=== PATIENT | female | born 1955 | race Caucasian/White ===

== ENCOUNTER 2021-02-14 12:39 | Inpatient (IN) ==
[2021-02-14] MEDS ORDERED: ACETAMINOPHEN 1,000 MG/100 ML BAG IV ONE (12:47)
[2021-02-14] MEDS ORDERED: 0.9 % SODIUM CHLORIDE 1,000 ML IV ONE (12:48)
[2021-02-14] MEDS ORDERED: DEXAMETHASONE 10 MG/ML VIAL IV ONE (13:17)
--- NOTE | 2021-02-14 13:22 | Emergency Department Note ---
SOB HPI General Chief Complaint: Shortness of Breath/Dyspnea Stated Complaint: COVID Time Seen by Provider: 02/14/21 12:43 Source: patient and EMS Mode of arrival: EMS Limitations: no limitations History of Present Illness HPI Narrative: This a 65-year-old female patient who [facility] Fortunately, she developed worsening shortness of breath this past Wednesday and was seen at [facility] ER where she was given IV steroid and a prescription for azithromycin and discharged home. She continued to have worsening shortness of breath and was brought in by EMS with saturations in the 60s on room air today. She is now on 10 L nonrebreather at 93%. She has a history of diabetes, hypertension. History of asthma, no COPD. Unvaccinated for Covid. She is complaining of some diarrhea, no nausea or vomiting. Denies chest pain. No history of coronary artery disease. Remote stress test was negative for ischemia. She is taking ibuprofen for fever. She is 100.4 F on presentation today. Related Data Home Medications Medication Instructions Recorded Confirmed oxygen-air delivery systems #1 02/01/19 11/04/20 Previous Rx's Medication Instructions Recorded levothyroxine 88 mcg capsule 88 mcg PO QDAY #90 cap 02/06/20 montelukast 10 mg tablet 10 mg PO QHS #90 tab 02/06/20 olmesartan 5 mg tablet 5 mg PO QDAY #90 tab 02/06/20 rosuvastatin 40 mg tablet 40 mg PO QDAY #90 tab 02/06/20 fluticasone propionate 230 2 puff INHALATION Q12H #8 g 03/20/20 mcg-salmeterol 21 mcg/actuation HFA inhaler glipizide 5 mg tablet 5 mg PO QDAY #90 tab 07/30/20 trazodone 50 mg tablet See Rx Instructions PO QDAY PRN 10/04/20 #90 tab hydrocortisone 2.5 % topical 1 applic TOPICAL BID PRN #20 g 11/01/20 ointment Allergies Allergy/AdvReac Type Severity Reaction Status Date / Time crab Allergy Mild Gastrointestinal Verified 11/04/20 13:28 Upset cat dander Allergy Unknown Rash, itchy Verified 11/04/20 13:28 codeine Allergy Unknown Rash, itchy Verified 05/17/21 13:28 dust Allergy Unknown Runny Uncoded 11/04/20 13:28 nose, ichy eyes grass Allergy Unknown Rash, itchy Uncoded 11/04/20 13:28 Review of Systems ROS ROS Narrative: Narrative: All systems ED: reviewed and negative except as stated. [facility] Narrative Patient History Narrative: Narrative: Medical/Surgical/Family History All Active Problems (Updated 02/14/21 @ 14:22 by Goldie Michael PA-C) Pneumonia due to COVID-19 virus (Acute) Respiratory failure, acute (Acute) Exposure to COVID-19 virus (Acute) Viral syndrome (Acute) Swelling of eyelid (Acute) Radiculopathy of lumbar region (Acute) Bursitis of right hip (Chronic) Back pain (Chronic) Low back pain (Chronic) Right hip pain (Chronic) Obstructive sleep apnea (Chronic) Recurrent UTI (Chronic) Medicare annual wellness visit, initial (Chronic) Snoring (Chronic) Allergic reaction (Chronic) Encounter for Health Maintenance Examination in Adult (Chronic) Abnormal liver enzymes (Chronic) Chronic diarrhea (Chronic) Middle insomnia (Chronic) Spasm of back muscles (Chronic) Acute dermatitis (Chronic) Exacerbation of asthma (Chronic) Asthma (Chronic) Allergic rhinitis (Chronic) Restless legs (Chronic) Hypothyroidism (Chronic) Candidiasis of skin (Chronic) History of tobacco use (Chronic) Diverticulitis (Chronic ~2013) Joint pain (Chronic) Insomnia (Chronic) Hyperlipidemia (Chronic) Hypertension, essential (Chronic) Borderline diabetes (Chronic) Muscle pain (Chronic) Lung disorder (Chronic) Arthritis (Chronic) Acid reflux (Chronic) Medical History Abnormal liver enzymes Acid reflux controlled with diet, low carb diet Acute dermatitis Allergic reaction stable on montelukast 10mg daily Allergic rhinitis Arthritis Asthma Back pain Borderline diabetes A1c to be checked today continue glipizide 5mg po daily Bursitis of right hip Candidiasis of skin Chronic diarrhea Diverticulitis (~2013) Ear discharge Encounter for Health Maintenance Examination in Adult Exacerbation of asthma stable on advair HFA 2 puff bid Exposure to COVID-19 virus History of tobacco use Hyperlipidemia stable on rosvastatin 40mg daily Hypertension, essential stable on olmesartan 5mg daily Hypothyroidism Impaired glucose tolerance Insomnia Joint pain Lung disorder Medicare annual wellness visit, initial Middle insomnia Muscle pain Restless legs Spasm of back muscles Swelling of eyelid Thyroid disease (~2000) Viral syndrome Surgical History H/O meniscectomy of right knee (~2011) H/O repair of left rotator cuff (~2013) History of bilateral carpal tunnel release (~2013) History of right knee surgery (~2011) ACL allograft History of right oophorectomy (~1986) dermoid cyst, still has uterus Hx of appendectomy (~1986) S/P tendon repair (~2013) Biceps tendon Family History Mother Arthritis Lymphoma Diabetes Migraines Thyroid disease Brother Lung cancer Heart attack Father Dementia Diabetes Hypertension, essential Heart attack Thyroid disease Heart disease Alzheimers disease Social History Smoking Status: Former smoker Alcohol Intake Frequency: a few times a month Substance Use: does not use Exam Narrative Narrative: General: AOx3, NAD, nontoxic appearing. Pleasant and conversant. HEENT: PERRLA, EOMI, normocephalic. Moist mucous membranes. Normal facies and normal dentition. Chest: Symmetric, no pain to palpation Respiratory: Crackles throughout all lung antunez. No respiratory distress. Unlabored breathing on 10 L O2 via nonrebreather. Sats 93% Heart: Regular rate and rhythm, no murmurs/clicks/rubs. Abdomen: Non-tender, Non distended, normal bowel tones. No organomegaly. Extremities: Warm and well perfused. No edema. DP 2+ bilaterally. No venous stasis. Neuro: No focal deficits. Cranial nerves II-XII normal. Skin: Warm dry, no rashes or lesions, no cyanosis. Psych: Normal mood and affect Heme/Lymph: No abnormal bruising General Limitations: no limitations Course Course Course Narrative: 65-year-old female with recent diagnosis of Covid presents with acute hypoxic respiratory failure Reevaluation(s) Reevaluation #1: Obtain basic labs, CMP CBC Obtain chest x-ray Give 6 mg IV Decadron x1 dose IV fluids Reevaluation #2: Chest x-ray with severe bilateral infiltrates consistent with Covid pneumonia. CMP with a creatinine 1.4. Baseline is 1. Sodium is 132. LFTs are moderately elevated. EKG shows normal sinus rhythm with nonspecific ST changes in the precordial leads with T wave inversions in V1 through V5. Patient has normal axis and normal intervals. No acute ST elevations. Patient has no cardiac history. I spoken with the hospitalist, and he asked that I order troponin. This has been done. Vital Signs Vital signs: Vital Signs Temperature 100.1 F H 02/14/21 12:40 Pulse Rate 86 02/14/21 12:40 Respiratory Rate 22 02/14/21 12:40 Blood Pressure 85/57 02/14/21 12:40 Pulse Oximetry (%) 90 02/14/21 12:40 Temperature 100.1 F H 02/14/21 12:40 Pulse Rate 92 H 02/14/21 13:46 Respiratory Rate 22 02/14/21 13:46 Blood Pressure 110/54 02/14/21 13:46 Pulse Oximetry (%) 92 02/14/21 13:46 MDM MDM Narrative Medical decision making narrative: Acute hypoxic respiratory failure Covid pneumonia Transaminitis Renal insufficiency Patient has high oxygen requirements and will need inpatient admission. I have spoken with the hospitalist who is except the patient for admission. Lab Data Result diagrams: 02/14/21 12:55 02/14/21 12:55 Labs: Lab Results 02/14/21 02/14/21 Range/Units 12:55 12:55 WBC 10.9 (4.5-11.0) K/mcL RBC 3.77 (3.59-5.38) M/mcL Hgb 11.9 (11.2-15.7) g/dL Hct 35.4 (34.1-44.9) % MCV 93.9 (80.0-100.0) fL MCH 31.6 (26.0-34.0) pg MCHC 33.6 (31.0-36.0) g/dL RDW 14.6 H (11.5-14.5) % Plt Count 329 (140-440) K/mcL MPV 10.2 (7.4-10.4) fL Sodium 132 L (133-145) mmol/L Potassium 3.8 (3.3-5.1) mmol/L Chloride 95 L (96-108) mmol/L Carbon Dioxide 24 (22-30) mmol/L Anion Gap 13.0 (8.0-16.0) BUN 23 (8-23) mg/dL Creatinine 1.4 H (0.6-1.1) mg/dL GFR Calculation 39 Glucose 98 (70-105) mg/dL Calcium 8.4 L (8.6-10.4) mg/dL Total Bilirubin 0.5 (0.1-1.0) mg/dL AST 62 H (<32) U/L ALT 49 H (<40) U/L Alkaline Phosphatase 58 (39-117) U/L Total Protein 6.5 (5.9-8.4) gm/dL Albumin 3.3 (3.2-5.2) gm/dL Globulin 3.2 (2.2-3.7) gm/dL Albumin/Globulin Ratio 1.0 (1.0-2.3) EKG Data EKG #1: EKG attestation: Yes I reviewed and interpreted this EKG. and Yes There are no EKG findings of acute coronary syndrome EKG results narrative: EKG was read by me at 12:44 PM. It does show normal sinus rhythm with rate 83 bpm, normal axis and normal intervals. She does have nonspecific T wave findings with T wave inversions in V1 through V5. Discharge Plan Patient/Caregiver Discharge Instructions Pt seen by WAREHOUSE PRICING AND INVENTORY CLERK/PA only: Yes Clinical Impression: Pneumonia due to COVID-19 virus, Respiratory failure, acute Patient Disposition: Xfer As Inpt ([facility]) Follow up with: Rosa M Terry PA-C [Primary Care Provider] - Prescriptions: No Action Advair HFA 230-21 mcg/actuation HFA aerosol inhaler 2 puff INHALATION Q12H Qty: 8 RF: 5 glipizide 5 mg tablet 5 mg PO QDAY Qty: 90 RF: 1 trazodone 50 mg tablet See Rx Instructions PO QDAY PRN (Reason: insomnia) Qty: 90 RF: 2 (DME) oxygen-air delivery systems device device See Dose Instructions .ROUTE .MEDSUPPLY Qty: 1 RF: 0 levothyroxine 88 mcg capsule 88 mcg PO QDAY Qty: 90 RF: 4 montelukast 10 mg tablet 10 mg PO QHS Qty: 90 RF: 4 olmesartan 5 mg tablet 5 mg PO QDAY Qty: 90 RF: 4 rosuvastatin 40 mg tablet 40 mg PO QDAY Qty: 90 RF: 4 hydrocortisone 2.5 % ointment 1 applic topical BID PRN (Reason: itching) Qty: 20 RF: 0
[2021-02-14 13:42] LABS: Hematocrit 35.4 % (34.1-44.9); Hemoglobin 11.9 g/dL (11.2-15.7); Mean Cell Volume 93.9 fL (80.0-100.0); Mean Corpuscular HGB Conc 33.6 g/dL (31.0-36.0); Mean Platelet Volume 10.2 fL (7.4-10.4); Platelet Count 329 K/mcL (140-440); RBC 3.77 M/mcL (3.59-5.38); Red Cell Distribution Width 14.6 % (11.5-14.5); WBC 10.9 K/mcL (4.5-11.0)
[2021-02-14 14:02] LABS: ALT/SGPT 49 U/L (<40); AST/SGOT 62 U/L (<32); Albumin 3.3 gm/dL (3.2-5.2); Alkaline Phosphatase 58 U/L (39-117); Bilirubin,Total 0.5 mg/dL (0.1-1.0); Blood Urea Nitrogen 23 mg/dL (8-23); Calcium 8.4 mg/dL (8.6-10.4); Carbon Dioxide 24 mmol/L (22-30); Chloride 95 mmol/L (96-108); Globulin 3.2 gm/dL (2.2-3.7); Glomerular Filtration Rate 39; Glucose 98 mg/dL (70-105)
[2021-02-14] MEDS ORDERED: ONDANSETRON 4 MG/2 ML VIAL IV ONE (14:04)
[2021-02-14 14:37] LABS: Anisocytosis FEW (None Seen); Band Neutrophils % 8 % (0-10); Lymphocytes % 7 % (15-49); Monocytes % (Manual) 1 % (1-12); Platelet Estimate NORMAL (Normal); RBC Morphology ABNORMAL (Normal); Segmented Neutrophils % 84 % (38-78)
[2021-02-14] MEDS ORDERED: traZODone HCL 50 MG TABLET PO PRN (15:10)
[2021-02-14] MEDS ORDERED: HYDROCORTISONE 2.5% TOPICAL PRN (15:10)
[2021-02-14] MEDS ORDERED: REMDESIVIR 200 MG in 0.9 % SODIUM CHLORIDE 250 ML IV ONE ×2 (15:11→16:30)
--- NOTE | 2021-02-14 15:27 | Internal Med History&Physical ---
HPI History of Present Illness Patient information: Note initiated : 02/14/21 at 3:18 pm Service Date, if different from initiated Date: [] Patient: Estrella Sue a 65 y/o F admitted on for COVID. Chief Complaint: [CoVID pneumonia] History of present illness: Ms. Sue is a 65 year old F history of type 2 diabetes mellitus, essential HTN, mixed dyslipidemia, hypothyroidism, asthma, presenting with 10-day history of shortness of breath with productive cough. Patient is not being vaccinated against Covid pneumonia. She was being diagnosed with Covid pneumonia 2 weeks ago because her had Covid pneumonia. Her symptoms of shortness of breath and productive cough started about 10 days ago. She is not sure about the color of her sputum. She denies respiratory wheezings. She denies subjective fever or chills. She is complaining of general body weakness. She denies generalized muscle aches. She presented to [facility] emergency room 2 days ago and she was being discharged home with Z-Humberto and was given a shot of steroid. Today when she presented to urgent care center she was found to have oxygen desaturations to 60s on room air. Labs significant for lack of leukocytosis with WBC 10.9. Serum creatinine level 1.4 baseline 1.0. Chest x-ray performed results pending. Constitutional Constitutional: Present weakness; Absent chills, excessive sweating, fatigue and fever(s) EENT Eyes: Absent blurry vision, change in vision, loss of vision and other visual disturbances Ears: Absent decreased hearing and tinnitus Nose, mouth and throat: Absent abnormal hearing, dry mouth, headache(s), nasal congestion and sore throat Cardiovascular Cardiovascular: Absent chest pain, chest pain at rest, edema, irregular heart rhythm and palpatations Respiratory Respiratory: Present cough, dyspnea and excessive phlegm production; Absent wheezing Gastrointestinal Gastrointestinal: Absent abdominal pain, constipation, diarrhea, nausea and vomiting Musculoskeletal Musculoskeletal: Absent back pain, deformity, limited range of motion, muscle cramps, muscle weakness and numbness Integumentary Integumentary: Absent lesions, rash and wounds Neurological Neurological: Absent focal weakness, headache(s) and numbness Psychiatric Psychiatric: Absent anxiety, depression and hallucinations PFSH PFSH All Active Problems (Updated 02/14/21 @ 15:24 by Shlomo Henley MD) Stage 1 acute kidney injury (Acute) T2DM (type 2 diabetes mellitus) (Acute) Pneumonia due to COVID-19 virus (Acute) Respiratory failure, acute (Acute) Exposure to COVID-19 virus (Acute) Viral syndrome (Acute) Swelling of eyelid (Acute) Radiculopathy of lumbar region (Acute) Bursitis of right hip (Chronic) Back pain (Chronic) Low back pain (Chronic) Right hip pain (Chronic) Obstructive sleep apnea (Chronic) Recurrent UTI (Chronic) Medicare annual wellness visit, initial (Chronic) Snoring (Chronic) Allergic reaction (Chronic) Encounter for Health Maintenance Examination in Adult (Chronic) Abnormal liver enzymes (Chronic) Chronic diarrhea (Chronic) Middle insomnia (Chronic) Spasm of back muscles (Chronic) Acute dermatitis (Chronic) Exacerbation of asthma (Chronic) Asthma (Chronic) Allergic rhinitis (Chronic) Restless legs (Chronic) Hypothyroidism (Chronic) Candidiasis of skin (Chronic) History of tobacco use (Chronic) Diverticulitis (Chronic ~2013) Joint pain (Chronic) Insomnia (Chronic) Hyperlipidemia (Chronic) Hypertension, essential (Chronic) Borderline diabetes (Chronic) Muscle pain (Chronic) Lung disorder (Chronic) Arthritis (Chronic) Acid reflux (Chronic) Medical History Abnormal liver enzymes Acid reflux controlled with diet, low carb diet Acute dermatitis Allergic reaction stable on montelukast 10mg daily Allergic rhinitis Arthritis Asthma Back pain Borderline diabetes A1c to be checked today continue glipizide 5mg po daily Bursitis of right hip Candidiasis of skin Chronic diarrhea Diverticulitis (~2013) Ear discharge Encounter for Health Maintenance Examination in Adult Exacerbation of asthma stable on advair HFA 2 puff bid Exposure to COVID-19 virus History of tobacco use Hyperlipidemia stable on rosvastatin 40mg daily Hypertension, essential stable on olmesartan 5mg daily Hypothyroidism Impaired glucose tolerance Insomnia Joint pain Lung disorder Medicare annual wellness visit, initial Middle insomnia Muscle pain Restless legs Spasm of back muscles Swelling of eyelid Thyroid disease (~2000) Viral syndrome Surgical History H/O meniscectomy of right knee (~2011) H/O repair of left rotator cuff (~2013) History of bilateral carpal tunnel release (~2013) History of right knee surgery (~2011) ACL allograft History of right oophorectomy (~1986) dermoid cyst, still has uterus Hx of appendectomy (~1986) S/P tendon repair (~2013) Biceps tendon Family History Mother Arthritis Lymphoma Diabetes Migraines Thyroid disease Brother Lung cancer Heart attack Father Dementia Diabetes Hypertension, essential Heart attack Thyroid disease Heart disease Alzheimers disease Social History marital status: education level: college occupational status: retired sexually active: Yes other: Children-3 alcohol intake frequency: a few times a month substance use type: does not use seatbelt use: always working smoke detector in home: Yes firearms in home: No MEDS/ALLERGIES Home Medications and Allergies Home Medications Medication Instructions Recorded Confirmed Type oxygen-air delivery systems #1 02/01/19 11/04/20 History levothyroxine 88 mcg capsule 88 mcg PO QDAY #90 cap 02/06/20 02/14/21 Rx montelukast 10 mg tablet 10 mg PO QHS #90 tab 02/06/20 02/14/21 Rx olmesartan 5 mg tablet 5 mg PO QDAY #90 tab 02/06/20 02/14/21 Rx rosuvastatin 40 mg tablet 40 mg PO QDAY #90 tab 02/06/20 02/14/21 Rx fluticasone propionate 230 2 puff INHALATION Q12H #8 g 03/20/20 02/14/21 Rx mcg-salmeterol 21 mcg/actuation HFA inhaler glipizide 5 mg tablet 5 mg PO QDAY #90 tab 07/30/20 02/14/21 Rx trazodone 50 mg tablet See Rx Instructions PO QDAY PRN 10/04/20 02/14/21 Rx #90 tab hydrocortisone 2.5 % topical 1 applic TOPICAL BID PRN #20 g 11/01/20 02/14/21 Rx ointment Allergies Allergy/AdvReac Type Severity Reaction Status Date / Time codeine Allergy Mild Rash, itchy Verified 02/14/21 15:16 crab AdvReac Mild Gastrointestinal Verified 02/14/21 15:16 Upset EXAM Constitutional Vitals: Temp Pulse Resp BP Pulse Ox 37.8 C H 85 21 98/69 94 02/14/21 12:40 02/14/21 15:01 02/14/21 15:01 02/14/21 15:01 02/14/21 15:01 General appearance: cooperative and mild distress; no no acute distress Head Head exam: Present atraumatic and normocephalic Eye Eye exam: Present EOMI and PERRL ENT ENT exam: Present mucous membranes moist, normal exam and normal external ear exam Additional comments: High flow oxygen in place Neck Neck exam: Present normal inspection; Absent lymphadenopathy, tenderness and thyromegaly Respiratory Respiratory exam: Present rhonchi; Absent accessory muscle use, respiratory distress and wheezes Cardiovascular Cardiovascular exam: Present normal rate and rhythm; Absent JVD GI/Abdominal GI/Abdominal exam: Present normal bowel sounds and soft; Absent organomegaly and tenderness Extremities Exam Extremities exam: Present full ROM, normal capillary refill and normal inspection; Absent tenderness Neurological Exam Neurological exam: Present alert, CN II-XII intact and oriented X3; Absent motor sensory deficit Psychiatric Psychiatric exam: Present normal affect and normal mood; Absent anxious and depressed Skin Skin exam: Present dry and intact DATA Data Completed and Pending Labs: Labs from last 24 hours 02/14/21 02/14/21 02/14/21 12:55 12:55 12:55 WBC 10.9 RBC 3.77 Hgb 11.9 Hct 35.4 MCV 93.9 MCH 31.6 MCHC 33.6 RDW 14.6 H Plt Count 329 MPV 10.2 Seg Neutrophils % 84 H Band Neutrophils % 8 Lymphocytes % 7 L Monocytes % (Manual) 1 Platelet Estimate Normal RBC Morphology Abnormal A Anisocytosis Few A Sodium 132 L Potassium 3.8 Chloride 95 L Carbon Dioxide 24 Anion Gap 13.0 BUN 23 Creatinine 1.4 H GFR Calculation 39 Glucose 98 Calcium 8.4 L Total Bilirubin 0.5 AST 62 H ALT 49 H Alkaline Phosphatase 58 Troponin T < 0.01 Total Protein 6.5 Albumin 3.3 Globulin 3.2 Albumin/Globulin Ratio 1.0 A/P Assessment and plan (1) Pneumonia due to COVID-19 virus: Status: Acute (2) Respiratory failure, acute: Status: Acute (3) Asthma: Status: Chronic Qualifiers: Asthma severity: moderate Asthma persistence: persistent Asthma complication type: uncomplicated Qualified Code(s): J45.40 - Moderate persistent asthma, uncomplicated; J45.40 - Moderate persistent asthma, uncomplicated; J45.40 - Moderate persistent asthma, uncomplicated (4) Hypothyroidism: Status: Chronic Qualifiers: Hypothyroidism type: unspecified Qualified Code(s): E03.9 - Hypothyroidism, unspecified (5) Hyperlipidemia: Status: Chronic Comment: stable on rosvastatin 40mg daily Qualifiers: Hyperlipidemia type: mixed hyperlipidemia Qualified Code(s): E78.2 - Mixed hyperlipidemia (6) Hypertension, essential: Status: Chronic Comment: stable on olmesartan 5mg daily (7) T2DM (type 2 diabetes mellitus): Status: Acute (8) Stage 1 acute kidney injury: Status: Acute Narrative A/P Narrative: Assessment and Plans: 1. CoVID pneumonia: Inpatient PCU Isolation: airborne and contact Lactic acid Inflammatory markers Blood culture Daily ABG Daily cbc w/ auto diff Supplemental oxygen titrate to keep spo2>=92% Tylenol PRN fever Robitussin DM PRN cough DuoNeb NEB q4hr PRN wheezing Remdesivir Dexamethasone Lovenox Lasix 2. Asthma: DuoNeb NEB q4hr PRN wheezing Supplemental oxygen titrate to keep spo2>=92% 3. T2DM: HgA1c Hold oral hypoglycemics Low dose correctional scale insulin Accu Chek AC HS Hypoglycemia protocol Diabetic diet 4. Hypothyroidism: Continue oral thyroid replacement therapy 5. Essential HTN: Hold oral antihypertensives given borderline blood pressure 6. Mixed dyslipidemia: Continue statin therapy 7. Stage 1 acute kidney injury: Avoid nephrotoxic agents Saline lock with Lasix CMP in AM to trend kidney functions GI ppx: not currently indicated DVT ppx: Lovenox Code status: Full Prognosis: guarded Disposition: inpatient PCU Time Spent With Patient Time: Total time spent is greater than 50% in coordination of care (as documented) at patient's floor/unit and/or counseling patient: Total time spent with greater than 50% in coordination of care (as documented) at patient's floor/unit and/or counseling patient:: Greater than 35 minutes
--- NOTE | 2021-02-14 15:32 | XRay Report ---
CLINICAL INFORMATION: hypoxia COMPARISON: 11/29/2018 FINDINGS: Mild cardiomegaly is unchanged. Increased density as developed in the azygous and right hilar region is likely represents adenopathy. Pulmonary vessels are normal. Large, yet vague, alveolar/interstitial infiltrates have developed throughout both lungs with peripheral sparing. IMPRESSION: Diffuse bilateral infiltrates. Consider aspiration or infection. Interpreted and Authenticated by: Gavin Bernal 02/14/21
[2021-02-14] MEDS ORDERED: DEXTROSE 50% 50 ML VIAL IV PRN (16:01)
[2021-02-14] MEDS ORDERED: DEXTROSE 31 GM ORAL.SUSP PO PRN (16:01)
[2021-02-14] MEDS ORDERED: ONDANSETRON 4 MG/2 ML VIAL IV PRN (16:01)
[2021-02-14] MEDS ORDERED: IPRATROPIUM/ALBUTEROL 3 ML AMPUL.NEB NEB PRN (16:01)
[2021-02-14] MEDS ORDERED: SENNOSIDES 1 TABLET PO PRN (16:01)
[2021-02-14] MEDS ORDERED: LACTULOSE 20 GM/30 ML ORAL.SOL PO PRN (16:01)
[2021-02-14] MEDS ORDERED: HYDROCORTISONE CRM 2.5% TUBE 30GM TOPICAL PRN (16:08)
[2021-02-14] MEDS: FUROSEMIDE 20 MG TABLET PO SCH (16:26)
[2021-02-14] MEDS: INSULIN LISPRO 1 UNIT/0.01 ML UNIT SQ SCH ×2 (17:57→21:53)
[2021-02-14 18:32] LABS: Prothrombin Time 14.1 sec (11.9-14.5)
[2021-02-14 18:44] LABS: ALT/SGPT 47 U/L (<40); AST/SGOT 56 U/L (<32); Albumin 3.2 gm/dL (3.2-5.2); Alkaline Phosphatase 57 U/L (39-117); Bilirubin,Total 0.4 mg/dL (0.1-1.0); Blood Urea Nitrogen 24 mg/dL (8-23); Calcium 8.2 mg/dL (8.6-10.4); Carbon Dioxide 20 mmol/L (22-30); Chloride 97 mmol/L (96-108); Globulin 3.2 gm/dL (2.2-3.7); Glomerular Filtration Rate 36; Glucose 130 mg/dL (70-105); Lactate Dehydrogenase 478 U/L (135-225)
[2021-02-14 18:51] LABS: Estimated Average Glucose(eAG) 126 mg/dL
[2021-02-14] MEDS ORDERED: ATORVASTATIN 40 MG TABLET PO SCH (21:00)
[2021-02-14] MEDS ORDERED: MONTELUKAST 10 MG TABLET PO SCH ×2 (21:00)
[2021-02-14] MEDS: ENOXAPARIN 40 MG/0.4 ML SYRINGE SQ SCH (21:13)
[2021-02-14] MEDS: traZODone HCL 50 MG TABLET PO PRN (21:14)
[2021-02-14] MEDS: ACETAMINOPHEN 325 MG TABLET PO PRN (21:14)
[2021-02-14] MEDS: rOPINIRole 0.25 MG TABLET PO SCH (21:14)
[2021-02-14] MEDS: guaiFENesin/DEXTROMETHORPHAN ORAL SOL PO PRN (21:15)
[2021-02-14] MEDS: 0.9 % SODIUM CHLORIDE 10 ML SYRINGE IV SCH (21:15)
[2021-02-14] MEDS: DOCUSATE SODIUM 100 MG CAPSULE PO SCH (21:15)
[2021-02-14] MEDS: ATORVASTATIN 40 MG TABLET PO SCH (21:15)
[2021-02-14] MEDS: CETIRIZINE 10 MG TABLET PO SCH (21:15)
[2021-02-15] MEDS: 0.9 % SODIUM CHLORIDE 10 ML SYRINGE IV SCH ×3 (06:18→22:43)
[2021-02-15 07:14] LABS: Basophils # (Auto) 0.05 K/mcL (0.00-0.30); Basophils % (Auto) 0.4 % (0.0-2.0); Eosinophils # (Auto) 0.01 K/mcL (0.00-0.70); Eosinophils % (Auto) 0.1 % (0.0-7.0); Hematocrit 36.5 % (34.1-44.9); Hemoglobin 11.3 g/dL (11.2-15.7); Lymphocytes # (Auto) 0.72 K/mcL (1.50-4.80); Lymphocytes % (Auto) 5.8 % (15.5-49.0); Mean Cell Volume 98.9 fL (80.0-100.0); Mean Platelet Volume 10.4 fL (7.4-10.4); Monocytes # (Auto) 0.34 K/mcL (0.10-0.90); Monocytes % (Auto) 2.7 % (1.0-12.0); Platelet Count 327 K/mcL (140-440); RBC 3.69 M/mcL (3.59-5.38); Red Cell Distribution Width 14.9 % (11.5-14.5); WBC 12.4 K/mcL (4.5-11.0)
[2021-02-15] MEDS ORDERED: LEVOTHYROXINE 88 MCG TABLET PO SCH (07:30)
[2021-02-15] MEDS: LEVOTHYROXINE 88 MCG TABLET PO SCH (07:31)
[2021-02-15 07:35] LABS: ALT/SGPT 47 U/L (<40); AST/SGOT 56 U/L (<32); Albumin/Globulin Ratio 0.9 (1.0-2.3); Alkaline Phosphatase 65 U/L (39-117); Bilirubin,Total 0.3 mg/dL (0.1-1.0); Blood Urea Nitrogen 25 mg/dL (8-23); Calcium 8.1 mg/dL (8.6-10.4); Carbon Dioxide 22 mmol/L (22-30); Chloride 99 mmol/L (96-108); Globulin 3.2 gm/dL (2.2-3.7); Glomerular Filtration Rate 36; Glucose 139 mg/dL (70-105)
[2021-02-15] MEDS: INSULIN LISPRO 1 UNIT/0.01 ML UNIT SQ SCH ×4 (07:55→20:53)
[2021-02-15] MEDS: FUROSEMIDE 20 MG TABLET PO SCH ×2 (07:57→16:08)
[2021-02-15] MEDS: ENOXAPARIN 40 MG/0.4 ML SYRINGE SQ SCH ×2 (08:39→20:19)
[2021-02-15] MEDS: DEXAMETHASONE 10 MG/ML VIAL IV SCH (08:39)
[2021-02-15] MEDS: DOCUSATE SODIUM 100 MG CAPSULE PO SCH ×2 (08:40→20:20)
[2021-02-15] MEDS: CETIRIZINE 10 MG TABLET PO SCH ×2 (08:48→20:20)
[2021-02-15] MEDS ORDERED: OLMESARTAN 5 MG PO SCH (09:00)
--- NOTE | 2021-02-15 10:58 | Internal Med Progress Note ---
SUBJECTIVE Subjective Patient information: Note initiated : 02/15/21 at 10:55 am Service Date, if different from initiated Date: [] Patient: Estrella Sue 65 y/o F admitted on 02/14/21 for COVID. Chief Complaint: [CoVID pneumonia] Interval history: History of present illness: Ms. Sue is a 65 year old F history of type 2 diabetes mellitus, essential HTN, mixed dyslipidemia, hypothyroidism, asthma, presenting with 10-day history of shortness of breath with productive cough. Patient is not being vaccinated against Covid pneumonia. She was being diagnosed with Covid pneumonia 2 weeks ago because her had Covid pneumonia. Her symptoms of shortness of breath and productive cough started about 10 days ago. She is not sure about the color of her sputum. She denies respiratory wheezings. She denies subjective fever or chills. She is complaining of general body weakness. She denies generalized muscle aches. She presented to [facility] emergency room 2 days ago and she was being discharged home with Z-Humberto and was given a shot of steroid. Today when she presented to urgent care center she was found to have oxygen desaturations to 60s on room air. Labs significant for lack of leukocytosis with WBC 10.9. Serum creatinine level 1.4 baseline 1.0. Chest x-ray performed results pending. 02/15: Afebrile overnight. Been on high flow oxygen between 50-60L/min with FiO2 80% overnight. Improving degree of shortness of breath. c/o nonproductive cough without sputum production. Denies wheezing. Denies chest pain. Denies fever, chills, or sweating. Constitutional Vitals: Vital Signs Temp Pulse Resp BP Pulse Ox 37.2 C 71 23 H 112/68 94 02/15/21 08:00 02/15/21 08:00 02/15/21 08:00 02/15/21 08:00 02/15/21 08:00 Period Temp Pulse Resp BP Sys/Gupta Pulse Ox Last 24 Hr 36.2 C-37.8 C 66-92 13-24 85-130/49-95 88-98 Intake and Output 02/14/21 02/15/21 02/15/21 21:59 05:59 13:59 Intake Total 250 Output Total 375 676 Balance -125 -676 Weight 93.939 kg Intake & Output: Intake & Output 02/14/21 02/15/21 02/15/21 21:59 05:59 13:59 Intake Total 250 Output Total 375 676 Balance -125 -676 Weight 93.939 kg Intake: IV 250 Veklury 200 mg In Sodium 250 Chloride 0.9% 250 ml @ 500 mls/ hr IV ONCE ONE Rx#:[id number] Output: Void Amount 375 675 # of times incontinent of urine 1 Other: Meal Breakfast Percent of Meal Consumed 100% Feeding Ability Independent Urine Appearance Clear Urine Color Light Davida Straw Urine Odor Normal General appearance: cooperative and no acute distress Head Head exam: Present atraumatic and normocephalic Eye Eye exam: Present EOMI and PERRL ENT ENT exam: Present mucous membranes moist, normal exam and normal external ear exam Additional comments: High flow oxygen in place Neck Neck exam: Present normal inspection; Absent lymphadenopathy, tenderness and thyromegaly Respiratory Respiratory exam: Present rhonchi; Absent accessory muscle use, respiratory distress and wheezes Cardiovascular Cardiovascular exam: Present normal rate and rhythm; Absent JVD GI/Abdominal GI/Abdominal exam: Present normal bowel sounds and soft; Absent organomegaly and tenderness Extremities Exam Extremities exam: Present full ROM, normal capillary refill and normal inspection; Absent tenderness Neurological Exam Neurological exam: Present alert, CN II-XII intact and oriented X3; Absent motor sensory deficit Psychiatric Psychiatric exam: Present normal affect and normal mood; Absent anxious and depressed Skin Skin exam: Present dry and intact OBJ DATA Labs CBC & Chem 7: 02/15/21 05:38 02/15/21 05:38 Labs: Abnormal Lab Results 02/15/21 02/15/21 02/14/21 05:38 05:38 16:55 WBC 12.4 H RDW 14.9 H Neut % (Auto) 91.0 H Lymph % (Auto) 5.8 L Lymph # (Auto) 0.72 L Seg Neutrophils % Lymphocytes % Absolute Neutrophils 11.32 H RBC Morphology Anisocytosis Fibrinogen D-Dimer Sodium Chloride Carbon Dioxide BUN 25 H Creatinine 1.5 H Glucose 139 H Calcium 8.1 L Ferritin AST 56 H ALT 47 H Lactate Dehydrogenase C-Reactive Protein Albumin 3.0 L Albumin/Globulin Ratio 0.9 L Procalcitonin 0.13 H 02/14/21 02/14/21 02/14/21 16:55 16:55 12:55 WBC RDW Neut % (Auto) Lymph % (Auto) Lymph # (Auto) Seg Neutrophils % Lymphocytes % Absolute Neutrophils RBC Morphology Anisocytosis Fibrinogen 758 H D-Dimer 0.88 H Sodium 131 L 132 L Chloride 95 L Carbon Dioxide 20 L BUN 24 H Creatinine 1.5 H 1.4 H Glucose 130 H Calcium 8.2 L 8.4 L Ferritin 1491.0 H AST 56 H 62 H ALT 47 H 49 H Lactate Dehydrogenase 478 H C-Reactive Protein 14.80 H Albumin Albumin/Globulin Ratio Procalcitonin 02/14/21 12:55 WBC RDW 14.6 H Neut % (Auto) Lymph % (Auto) Lymph # (Auto) Seg Neutrophils % 84 H Lymphocytes % 7 L Absolute Neutrophils RBC Morphology Abnormal A Anisocytosis Few A Fibrinogen D-Dimer Sodium Chloride Carbon Dioxide BUN Creatinine Glucose Calcium Ferritin AST ALT Lactate Dehydrogenase C-Reactive Protein Albumin Albumin/Globulin Ratio Procalcitonin Meds: Medications Acetaminophen (Acetaminophen 325 Mg Tablet) 650 mg PO Q6HP PRN; Protocol PRN Reason: Per Pain Protocol/Fever > 101 Last Admin: 02/14/21 21:14 Dose: 650 mg Documented by: Albuterol/Ipratropium (Ipratropium/Albuterol 3 Ml Ampul.Neb) 3 ml NEB Q4HP PRN PRN Reason: Shortness Of Breath Atorvastatin Calcium (Atorvastatin 40 Mg Tablet) 80 mg PO [facility] Last Admin: 02/14/21 21:15 Dose: 80 mg Documented by: Cetirizine HCl (Cetirizine 10 Mg Tablet) 10 mg PO BID [facility] Last Admin: 02/15/21 08:48 Dose: 10 mg Documented by: Dexamethasone (Dexamethasone 10 Mg/Ml Vial) 6 mg IV DAILY [facility] Last Admin: 02/15/21 08:39 Dose: 6 mg Documented by: Dextrose (Dextrose 50% 50 Ml Vial) 0 ml IV UD PRN PRN Reason: Hypoglycemia Diagnostic Test (Pha) (Accu-Chek 1 Each Strip) 1 each FS ACHS [facility] Last Admin: 02/15/21 07:55 Dose: 1 each Documented by: Docusate Sodium (Docusate Sodium 100 Mg Capsule) 100 mg PO BID [facility] Last Admin: 02/15/21 08:40 Dose: Not Given Documented by: Enoxaparin Sodium (Enoxaparin 40 Mg/0.4 Ml Syringe) 40 mg SQ BID [facility] Last Admin: 02/15/21 08:39 Dose: 40 mg Documented by: Furosemide (Furosemide 20 Mg Tablet) 20 mg PO BIDD [facility] Last Admin: 02/15/21 07:57 Dose: 20 mg Documented by: Glucose (Dextrose 31 Gm Oral.Susp) 15 gm PO PRN PRN PRN Reason: Hypoglycemia Guaifenesin (Guaifenesin/Dextromethorphan Oral Steph) 10 ml PO Q4HP PRN PRN Reason: Cough Last Admin: 02/14/21 21:15 Dose: 10 ml Documented by: Hydrocortisone (Hydrocortisone Crm 2.5% Tube 30gm) 1 dose TOPICAL BID PRN PRN Reason: itching REMDESIVIR 100 mg/ Sodium (Chloride) 250 mls @ 500 mls/hr IV Q24H [facility] Stop: 02/18/21 15:29 Insulin Human Lispro (Insulin Lispro 1 Unit/0.01 Ml Unit) 0 unit SQ ACHS [facility]; Protocol Last Admin: 02/15/21 07:55 Dose: Not Given Documented by: Lactulose (Lactulose 20 Gm/30 Ml Oral.Steph) 10 gm PO DAILYP PRN PRN Reason: Constipation Levothyroxine Sodium (Levothyroxine 88 Mcg Tablet) 88 mcg PO QAMAC [facility] Last Admin: 02/15/21 07:31 Dose: 88 mcg Documented by: Ondansetron HCl (Ondansetron 4 Mg/2 Ml Vial) 4 mg IV Q4HP PRN; Protocol PRN Reason: Nausea And Vomiting Last Admin: 02/15/21 07:31 Dose: 4 mg Documented by: Ropinirole HCl (Ropinirole 0.25 Mg Tablet) 0.5 mg PO HS [facility] Last Admin: 02/14/21 21:14 Dose: 0.5 mg Documented by: Senna (Sennosides 1 Tablet) 2 tab PO HSP PRN PRN Reason: Constipation Sodium Chloride (0.9 % Sodium Chloride 10 Ml Syringe) 10 ml IV Q8 [facility] Last Admin: 02/15/21 06:18 Dose: 10 ml Documented by: Trazodone HCl (Trazodone Hcl 50 Mg Tablet) 50 - 100 mg PO HSP PRN PRN Reason: insomnia Last Admin: 02/14/21 21:14 Dose: 100 mg Documented by: A/P Assessment and plan (1) Pneumonia due to COVID-19 virus: Status: Acute (2) Respiratory failure, acute: Status: Acute (3) Asthma: Status: Chronic Qualifiers: Asthma severity: moderate Asthma persistence: persistent Asthma complication type: uncomplicated Qualified Code(s): J45.40 - Moderate persistent asthma, uncomplicated; J45.40 - Moderate persistent asthma, uncomplicated; J45.40 - Moderate persistent asthma, uncomplicated (4) Hypothyroidism: Status: Chronic Qualifiers: Hypothyroidism type: unspecified Qualified Code(s): E03.9 - Hypothyroidism, unspecified (5) Hyperlipidemia: Status: Chronic Comment: stable on rosvastatin 40mg daily Qualifiers: Hyperlipidemia type: mixed hyperlipidemia Qualified Code(s): E78.2 - Mixed hyperlipidemia (6) Hypertension, essential: Status: Chronic Comment: stable on olmesartan 5mg daily (7) T2DM (type 2 diabetes mellitus): Status: Acute (8) Stage 1 acute kidney injury: Status: Acute Narrative A/P Narrative: Assessment and Plans: 1. CoVID pneumonia: Inpatient PCU Isolation: airborne and contact Lactic acid Inflammatory markers Blood culture, no growth to date Daily ABG Daily cbc w/ auto diff Supplemental oxygen titrate to keep spo2>=92%, currently on high flow oxygen Tylenol PRN fever Robitussin DM PRN cough DuoNeb NEB q4hr PRN wheezing Remdesivir Dexamethasone Lovenox Lasix 2. Asthma: DuoNeb NEB q4hr PRN wheezing Supplemental oxygen titrate to keep spo2>=92% 3. T2DM: HgA1c 6.0 Hold oral hypoglycemics Low dose correctional scale insulin Accu Chek AC HS Hypoglycemia protocol Diabetic diet 4. Hypothyroidism: Continue oral thyroid replacement therapy 5. Essential HTN: Hold oral antihypertensives given borderline blood pressure 6. Mixed dyslipidemia: Continue statin therapy 7. Stage 1 acute kidney injury: Avoid nephrotoxic agents Saline lock with Lasix CMP in AM to trend kidney functions GI ppx: not currently indicated DVT ppx: Lovenox Code status: Full Prognosis: guarded Disposition: inpatient PCU Time Spent With Patient Time: Total time spent is greater than 50% in coordination of care (as documented) at patient's floor/unit and/or counseling patient: QUALITY VTE Deep Vein Thrombosis/Pulmonary Embolism Present on Admission: No
[2021-02-15] MEDS: REMDESIVIR 100 MG in 0.9 % SODIUM CHLORIDE 250 ML IV SCH (14:58)
[2021-02-15] MEDS: rOPINIRole 0.25 MG TABLET PO SCH (20:19)
[2021-02-15] MEDS: ATORVASTATIN 40 MG TABLET PO SCH (20:20)
[2021-02-15] MEDS: traZODone HCL 50 MG TABLET PO PRN (20:20)
[2021-02-16 07:09] LABS: Basophils # (Auto) 0.05 K/mcL (0.00-0.30); Basophils % (Auto) 0.4 % (0.0-2.0); Eosinophils # (Auto) 0 K/mcL (0.00-0.70); Eosinophils % (Auto) 0 % (0.0-7.0); Hematocrit 35.7 % (34.1-44.9); Hemoglobin 11.2 g/dL (11.2-15.7); Lymphocytes # (Auto) 1.02 K/mcL (1.50-4.80); Lymphocytes % (Auto) 7.7 % (15.5-49.0); Mean Cell Volume 95.7 fL (80.0-100.0); Mean Corpuscular HGB Conc 31.4 g/dL (31.0-36.0); Mean Platelet Volume 10.3 fL (7.4-10.4); Monocytes # (Auto) 0.64 K/mcL (0.10-0.90); Monocytes % (Auto) 4.8 % (1.0-12.0); Platelet Count 414 K/mcL (140-440); RBC 3.73 M/mcL (3.59-5.38); Red Cell Distribution Width 14.6 % (11.5-14.5); WBC 13.3 K/mcL (4.5-11.0)
[2021-02-16] MEDS: LEVOTHYROXINE 88 MCG TABLET PO SCH (07:18)
[2021-02-16] MEDS: 0.9 % SODIUM CHLORIDE 10 ML SYRINGE IV SCH ×3 (07:18→21:22)
[2021-02-16] MEDS: INSULIN LISPRO 1 UNIT/0.01 ML UNIT SQ SCH ×4 (07:38→21:05)
[2021-02-16 07:39] LABS: ALT/SGPT 40 U/L (<40); AST/SGOT 41 U/L (<32); Albumin/Globulin Ratio 0.9 (1.0-2.3); Alkaline Phosphatase 62 U/L (39-117); Bilirubin,Total 0.4 mg/dL (0.1-1.0); Blood Urea Nitrogen 29 mg/dL (8-23); Calcium 8.3 mg/dL (8.6-10.4); Carbon Dioxide 23 mmol/L (22-30); Chloride 99 mmol/L (96-108); Globulin 3.2 gm/dL (2.2-3.7); Glomerular Filtration Rate 42; Glucose 148 mg/dL (70-105)
[2021-02-16] MEDS: DEXAMETHASONE 10 MG/ML VIAL IV SCH (08:29)
[2021-02-16] MEDS: ACETAMINOPHEN 325 MG TABLET PO PRN (08:36)
[2021-02-16] MEDS: DOCUSATE SODIUM 100 MG CAPSULE PO SCH ×2 (08:51→20:59)
[2021-02-16] MEDS: FUROSEMIDE 20 MG TABLET PO SCH ×2 (08:53→16:12)
--- NOTE | 2021-02-16 09:05 | Internal Med Progress Note ---
SUBJECTIVE Subjective Patient information: Note initiated : 02/16/21 at 9:03 am Service Date, if different from initiated Date: [] Patient: Estrella Sue 65 y/o F admitted on 02/14/21 for COVID. Chief Complaint: [CoVID pneumonia] Interval history: History of present illness: Ms. Sue is a 65 year old F history of type 2 diabetes mellitus, essential HTN, mixed dyslipidemia, hypothyroidism, asthma, presenting with 10-day history of shortness of breath with productive cough. Patient is not being vaccinated against Covid pneumonia. She was being diagnosed with Covid pneumonia 2 weeks ago because her had Covid pneumonia. Her symptoms of shortness of breath and productive cough started about 10 days ago. She is not sure about the color of her sputum. She denies respiratory wheezings. She denies subjective fever or chills. She is complaining of general body weakness. She denies generalized muscle aches. She presented to [facility] emergency room 2 days ago and she was being discharged home with Z-Humberto and was given a shot of steroid. Today when she presented to urgent care center she was found to have oxygen desaturations to 60s on room air. Labs significant for lack of leukocytosis with WBC 10.9. Serum creatinine level 1.4 baseline 1.0. Chest x-ray performed results pending. 02/15: Afebrile overnight. Been on high flow oxygen between 50-60L/min with FiO2 80% overnight. Improving degree of shortness of breath. c/o nonproductive cough without sputum production. Denies wheezing. Denies chest pain. Denies fever, chills, or sweating. 02/16: Afebrile overnight. Been on high flow oxygen between 50L/min with FiO2 70% overnight. Improving degree of shortness of breath. c/o nonproductive cough without sputum production. Denies wheezing. Denies chest pain. Denies fever, chills, or sweating. Constitutional Vitals: Vital Signs Temp Pulse Resp BP Pulse Ox 36.6 C 65 15 109/75 98 02/16/21 08:01 02/16/21 08:01 02/16/21 08:01 02/16/21 08:01 02/16/21 08:01 Period Temp Pulse Resp BP Sys/Gupta Pulse Ox Last 24 Hr 36.5 C-37.4 C 56-86 15-28 82-126/56-108 89-98 Intake and Output 02/15/21 02/16/21 02/16/21 21:59 05:59 13:59 Intake Total 830 Output Total 850 700 175 Balance - -175 Weight 93.712 kg Intake & Output: Intake & Output 02/15/21 02/16/21 02/16/21 21:59 05:59 13:59 Intake Total 830 Output Total 850 700 175 Balance - -175 Weight 93.712 kg Intake: IV 250 Veklury 100 mg In Sodium 250 Chloride 0.9% 250 ml @ 500 mls/ hr IV Q24H [facility] Rx#:[id number] Oral 580 Output: Urine Catheter Amount 450 Void Amount 850 250 175 Other: Meal Dinner Percent of Meal Consumed 75% Feeding Ability Independent Urine Appearance Clear Clear Clear Urine Color Bright Yellow Bright Yellow Straw Urine Odor Normal Normal General appearance: cooperative and no acute distress Head Head exam: Present atraumatic and normocephalic Eye Eye exam: Present EOMI and PERRL ENT ENT exam: Present mucous membranes moist, normal exam and normal external ear exam Additional comments: High flow oxygen in place Neck Neck exam: Present normal inspection; Absent lymphadenopathy, tenderness and thyromegaly Respiratory Respiratory exam: Absent accessory muscle use, respiratory distress and wheezes Cardiovascular Cardiovascular exam: Present normal rate and rhythm; Absent JVD GI/Abdominal GI/Abdominal exam: Present normal bowel sounds and soft; Absent organomegaly and tenderness Extremities Exam Extremities exam: Present full ROM, normal capillary refill and normal inspection; Absent tenderness Neurological Exam Neurological exam: Present alert, CN II-XII intact and oriented X3; Absent motor sensory deficit Psychiatric Psychiatric exam: Present normal affect and normal mood; Absent anxious and depressed Skin Skin exam: Present dry and intact OBJ DATA Labs CBC & Chem 7: 02/16/21 05:13 02/16/21 05:13 Labs: Abnormal Lab Results 02/16/21 02/16/21 02/15/21 05:13 05:13 05:38 WBC 13.3 H RDW 14.6 H Neut % (Auto) 87.1 H Lymph % (Auto) 7.7 L Lymph # (Auto) 1.02 L Seg Neutrophils % Lymphocytes % Absolute Neutrophils 11.56 H RBC Morphology Anisocytosis Fibrinogen D-Dimer Sodium Chloride Carbon Dioxide BUN 29 H 25 H Creatinine 1.3 H 1.5 H Glucose 148 H 139 H Calcium 8.3 L 8.1 L Ferritin AST 41 H 56 H ALT 40 H 47 H Lactate Dehydrogenase C-Reactive Protein Albumin 3.0 L 3.0 L Albumin/Globulin Ratio 0.9 L 0.9 L Procalcitonin 02/15/21 02/14/21 02/14/21 05:38 16:55 16:55 WBC 12.4 H RDW 14.9 H Neut % (Auto) 91.0 H Lymph % (Auto) 5.8 L Lymph # (Auto) 0.72 L Seg Neutrophils % Lymphocytes % Absolute Neutrophils 11.32 H RBC Morphology Anisocytosis Fibrinogen D-Dimer Sodium 131 L Chloride Carbon Dioxide 20 L BUN 24 H Creatinine 1.5 H Glucose 130 H Calcium 8.2 L Ferritin 1491.0 H AST 56 H ALT 47 H Lactate Dehydrogenase 478 H C-Reactive Protein 14.80 H Albumin Albumin/Globulin Ratio Procalcitonin 0.13 H 02/14/21 02/14/21 02/14/21 16:55 12:55 12:55 WBC RDW 14.6 H Neut % (Auto) Lymph % (Auto) Lymph # (Auto) Seg Neutrophils % 84 H Lymphocytes % 7 L Absolute Neutrophils RBC Morphology Abnormal A Anisocytosis Few A Fibrinogen 758 H D-Dimer 0.88 H Sodium 132 L Chloride 95 L Carbon Dioxide BUN Creatinine 1.4 H Glucose Calcium 8.4 L Ferritin AST 62 H ALT 49 H Lactate Dehydrogenase C-Reactive Protein Albumin Albumin/Globulin Ratio Procalcitonin Meds: Medications Acetaminophen (Acetaminophen 325 Mg Tablet) 650 mg PO Q6HP PRN; Protocol PRN Reason: Per Pain Protocol/Fever > 101 Last Admin: 02/16/21 08:36 Dose: 650 mg Documented by: Albuterol/Ipratropium (Ipratropium/Albuterol 3 Ml Ampul.Neb) 3 ml NEB Q4HP PRN PRN Reason: Shortness Of Breath Atorvastatin Calcium (Atorvastatin 40 Mg Tablet) 80 mg PO HS [facility] Last Admin: 02/15/21 20:20 Dose: 80 mg Documented by: Cetirizine HCl (Cetirizine 10 Mg Tablet) 10 mg PO BID [facility] Last Admin: 02/15/21 20:20 Dose: 10 mg Documented by: Dexamethasone (Dexamethasone 10 Mg/Ml Vial) 6 mg IV DAILY [facility] Last Admin: 02/16/21 08:29 Dose: 6 mg Documented by: Dextrose (Dextrose 50% 50 Ml Vial) 0 ml IV UD PRN PRN Reason: Hypoglycemia Diagnostic Test (Pha) (Accu-Chek 1 Each Strip) 1 each FS [facility] Last Admin: 02/16/21 07:38 Dose: 1 each Documented by: Docusate Sodium (Docusate Sodium 100 Mg Capsule) 100 mg PO BID [facility] Last Admin: 02/16/21 08:51 Dose: Not Given Documented by: Enoxaparin Sodium (Enoxaparin 40 Mg/0.4 Ml Syringe) 40 mg SQ BID [facility] Last Admin: 02/15/21 20:19 Dose: 40 mg Documented by: Furosemide (Furosemide 20 Mg Tablet) 20 mg PO BIDD [facility] Last Admin: 02/16/21 08:53 Dose: 20 mg Documented by: Glucose (Dextrose 31 Gm Oral.Susp) 15 gm PO PRN PRN PRN Reason: Hypoglycemia Guaifenesin (Guaifenesin/Dextromethorphan Oral Steph) 10 ml PO Q4HP PRN PRN Reason: Cough Last Admin: 02/14/21 21:15 Dose: 10 ml Documented by: Hydrocortisone (Hydrocortisone Crm 2.5% Tube 30gm) 1 dose TOPICAL BID PRN PRN Reason: itching REMDESIVIR 100 mg/ Sodium (Chloride) 250 mls @ 500 mls/hr IV Q24H [facility] Stop: 02/18/21 15:29 Last Infusion: 02/15/21 15:28 Dose: Infused Documented by: Insulin Human Lispro (Insulin Lispro 1 Unit/0.01 Ml Unit) 0 unit SQ [facility]; Protocol Last Admin: 02/16/21 07:38 Dose: 1 unit Documented by: Lactulose (Lactulose 20 Gm/30 Ml Oral.Steph) 10 gm PO DAILYP PRN PRN Reason: Constipation Levothyroxine Sodium (Levothyroxine 88 Mcg Tablet) [facility] Last Admin: 02/16/21 07:18 Dose: 88 mcg Documented by: Ondansetron HCl (Ondansetron 4 Mg/2 Ml Vial) 4 mg IV Q4HP PRN; Protocol PRN Reason: Nausea And Vomiting Last Admin: 02/15/21 07:31 Dose: 4 mg Documented by: Ropinirole HCl (Ropinirole 0.25 Mg Tablet) 0.5 mg PO HS [facility] Last Admin: 02/15/21 20:19 Dose: 0.5 mg Documented by: Senna (Sennosides 1 Tablet) 2 tab PO HSP PRN PRN Reason: Constipation Sodium Chloride (0.9 % Sodium Chloride 10 Ml Syringe) 10 ml IV Q8 [facility] Last Admin: 02/16/21 07:18 Dose: 10 ml Documented by: Trazodone HCl (Trazodone Hcl 50 Mg Tablet) 50 - 100 mg PO HSP PRN PRN Reason: insomnia Last Admin: 02/15/21 20:20 Dose: 100 mg Documented by: A/P Assessment and plan (1) Pneumonia due to COVID-19 virus: Status: Acute (2) Respiratory failure, acute: Status: Acute (3) Asthma: Status: Chronic Qualifiers: Asthma severity: moderate Asthma persistence: persistent Asthma complication type: uncomplicated Qualified Code(s): J45.40 - Moderate persistent asthma, uncomplicated; J45.40 - Moderate persistent asthma, uncomplicated; J45.40 - Moderate persistent asthma, uncomplicated (4) Hypothyroidism: Status: Chronic Qualifiers: Hypothyroidism type: unspecified Qualified Code(s): E03.9 - Hypothyroidism, unspecified (5) Hyperlipidemia: Status: Chronic Comment: stable on rosvastatin 40mg daily Qualifiers: Hyperlipidemia type: mixed hyperlipidemia Qualified Code(s): E78.2 - Mixed hyperlipidemia (6) Hypertension, essential: Status: Chronic Comment: stable on olmesartan 5mg daily (7) T2DM (type 2 diabetes mellitus): Status: Acute (8) Stage 1 acute kidney injury: Status: Acute Narrative A/P Narrative: Assessment and Plans: 1. CoVID pneumonia: Inpatient PCU Isolation: airborne and contact Lactic acid Inflammatory markers Blood culture, no growth to date Daily ABG Daily cbc w/ auto diff Supplemental oxygen titrate to keep spo2>=92%, currently on high flow oxygen Tylenol PRN fever Robitussin DM PRN cough DuoNeb NEB q4hr PRN wheezing Remdesivir Dexamethasone Lovenox Lasix 2. Asthma: DuoNeb NEB q4hr PRN wheezing Supplemental oxygen titrate to keep spo2>=92% 3. T2DM: HgA1c 6.0 Hold oral hypoglycemics Low dose correctional scale insulin Accu Chek AC HS Hypoglycemia protocol Diabetic diet 4. Hypothyroidism: Continue oral thyroid replacement therapy 5. Essential HTN: Hold oral antihypertensives given borderline blood pressure 6. Mixed dyslipidemia: Continue statin therapy 7. Stage 1 acute kidney injury: Avoid nephrotoxic agents Saline lock with Lasix CMP in AM to trend kidney functions GI ppx: not currently indicated DVT ppx: Lovenox Code status: Full Prognosis: guarded Disposition: inpatient PCU Time Spent With Patient Time: Total time spent is greater than 50% in coordination of care (as documented) at patient's floor/unit and/or counseling patient: QUALITY VTE Deep Vein Thrombosis/Pulmonary Embolism Present on Admission: No
[2021-02-16] MEDS: CETIRIZINE 10 MG TABLET PO SCH ×2 (09:15→20:58)
[2021-02-16 09:35] LABS: Neutrophils % (Auto) 87.1 % (38.0-78.0)
[2021-02-16] MEDS: ENOXAPARIN 40 MG/0.4 ML SYRINGE SQ SCH ×2 (09:35→20:58)
[2021-02-16] MEDS: REMDESIVIR 100 MG in 0.9 % SODIUM CHLORIDE 250 ML IV SCH (14:30)
[2021-02-16] MEDS: rOPINIRole 0.25 MG TABLET PO SCH (20:58)
[2021-02-16] MEDS: traZODone HCL 50 MG TABLET PO PRN (20:59)
[2021-02-16] MEDS: ATORVASTATIN 40 MG TABLET PO SCH (20:59)
[2021-02-17] MEDS: guaiFENesin/DEXTROMETHORPHAN ORAL SOL PO PRN ×2 (04:10→21:30)
[2021-02-17] MEDS: ACETAMINOPHEN 325 MG TABLET PO PRN ×2 (04:10→21:29)
[2021-02-17 07:25] LABS: Basophils # (Auto) 0.04 K/mcL (0.00-0.30); Basophils % (Auto) 0.3 % (0.0-2.0); Eosinophils # (Auto) 0.01 K/mcL (0.00-0.70); Eosinophils % (Auto) 0.1 % (0.0-7.0); Hematocrit 35.4 % (34.1-44.9); Hemoglobin 11.5 g/dL (11.2-15.7); Lymphocytes % (Auto) 8.4 % (15.5-49.0); Mean Cell Volume 95.4 fL (80.0-100.0); Mean Corpuscular HGB Conc 32.5 g/dL (31.0-36.0); Monocytes # (Auto) 0.88 K/mcL (0.10-0.90); Monocytes % (Auto) 6.1 % (1.0-12.0); Neutrophils % (Auto) 85.1 % (38.0-78.0); Platelet Count 463 K/mcL (140-440); RBC 3.71 M/mcL (3.59-5.38); Red Cell Distribution Width 14.4 % (11.5-14.5)
[2021-02-17] MEDS: FUROSEMIDE 20 MG TABLET PO SCH ×2 (08:06→15:01)
[2021-02-17] MEDS: LEVOTHYROXINE 88 MCG TABLET PO SCH (08:06)
[2021-02-17] MEDS: 0.9 % SODIUM CHLORIDE 10 ML SYRINGE IV SCH ×3 (08:06→22:06)
[2021-02-17] MEDS: DOCUSATE SODIUM 100 MG CAPSULE PO SCH ×2 (08:06→22:06)
[2021-02-17] MEDS: ENOXAPARIN 40 MG/0.4 ML SYRINGE SQ SCH ×2 (08:09→21:29)
[2021-02-17] MEDS: DEXAMETHASONE 10 MG/ML VIAL IV SCH (08:09)
[2021-02-17 08:19] LABS: WBC 14.4 K/mcL (4.5-11.0)
[2021-02-17 08:19] LABS: ALT/SGPT 37 U/L (<40); AST/SGOT 30 U/L (<32); Albumin 3.1 gm/dL (3.2-5.2); Albumin/Globulin Ratio 1.1 (1.0-2.3); Alkaline Phosphatase 57 U/L (39-117); Bilirubin,Total 0.3 mg/dL (0.1-1.0); Blood Urea Nitrogen 34 mg/dL (8-23); Calcium 8.9 mg/dL (8.6-10.4); Carbon Dioxide 27 mmol/L (22-30); Chloride 99 mmol/L (96-108); Globulin 2.8 gm/dL (2.2-3.7); Glomerular Filtration Rate 47; Glucose 146 mg/dL (70-105)
[2021-02-17] MEDS: INSULIN LISPRO 1 UNIT/0.01 ML UNIT SQ SCH ×4 (08:28→21:45)
[2021-02-17] MEDS: CETIRIZINE 10 MG TABLET PO SCH ×2 (09:13→21:28)
--- NOTE | 2021-02-17 09:13 | Internal Med Progress Note ---
SUBJECTIVE Subjective Patient information: Note initiated : 02/17/21 at 9:10 am Service Date, if different from initiated Date: [] Patient: Estrella Sue a 65 y/o F admitted on 02/14/21 for COVID. Chief Complaint: [CoVID pneumonia] Interval history: History of present illness: Ms. Sue is a 65 year old F history of type 2 diabetes mellitus, essential HTN, mixed dyslipidemia, hypothyroidism, asthma, presenting with 10-day history of shortness of breath with productive cough. Patient is not being vaccinated against Covid pneumonia. She was being diagnosed with Covid pneumonia 2 weeks ago because her had Covid pneumonia. Her symptoms of shortness of breath and productive cough started about 10 days ago. She is not sure about the color of her sputum. She denies respiratory wheezings. She denies subjective fever or chills. She is complaining of general body weakness. She denies generalized muscle aches. She presented to [facility] emergency room 2 days ago and she was being discharged home with Z-Humberto and was given a shot of steroid. Today when she presented to urgent care center she was found to have oxygen desaturations to 60s on room air. Labs significant for lack of leukocytosis with WBC 10.9. Serum creatinine level 1.4 baseline 1.0. Chest x-ray performed results pending. 02/15: Afebrile overnight. Been on high flow oxygen between 50-60L/min with FiO2 80% overnight. Improving degree of shortness of breath. c/o nonproductive cough without sputum production. Denies wheezing. Denies chest pain. Denies fever, chills, or sweating. 02/16: Afebrile overnight. Been on high flow oxygen between 50L/min with FiO2 70% overnight. Improving degree of shortness of breath. c/o nonproductive cough without sputum production. Denies wheezing. Denies chest pain. Denies fever, chills, or sweating. 02/16: Afebrile overnight. Been on high flow oxygen between 50L/min with FiO2 80% overnight. Improving degree of shortness of breath. c/o nonproductive cough without sputum production. Denies wheezing. Denies chest pain. Denies fever, chills, or sweating. Constitutional Vitals: Vital Signs Temp Pulse Resp BP Pulse Ox 36.8 C 77 25 H 129/76 94 02/17/21 08:01 02/17/21 08:28 02/17/21 08:28 02/17/21 08:01 02/17/21 08:31 Period Temp Pulse Resp BP Sys/Gupta Pulse Ox Last 24 Hr 36.1 C-36.8 C 53-86 14-25 108-135/68-80 91-98 Intake and Output 02/16/21 02/17/21 02/17/21 21:59 05:59 13:59 Intake Total 490 Output Total 425 850 50 Balance -425 -360 -50 Weight 93.123 kg Intake & Output: Intake & Output 02/16/21 02/17/21 02/17/21 21:59 05:59 13:59 Intake Total 490 Output Total 425 850 50 Balance -425 -360 -50 Weight 93.123 kg Intake: IV 250 Veklury 100 mg In Sodium 250 Chloride 0.9% 250 ml @ 500 mls/ hr IV Q24H [facility] Rx#:[id number] Oral 240 Output: Void Amount 425 850 50 Other: Meal Dinner Percent of Meal Consumed 75% Urine Appearance Cloudy Clear Clear Urine Color Dark Yellow Bright Yellow Dark Yellow Urine Odor Normal Normal General appearance: cooperative and no acute distress Head Head exam: Present atraumatic and normocephalic Eye Eye exam: Present EOMI and PERRL ENT ENT exam: Present mucous membranes moist, normal exam and normal external ear exam Additional comments: High flow oxygen in place Neck Neck exam: Present normal inspection; Absent lymphadenopathy, tenderness and thyromegaly Respiratory Respiratory exam: Present rhonchi; Absent accessory muscle use, respiratory distress and wheezes Cardiovascular Cardiovascular exam: Present normal rate and rhythm; Absent JVD GI/Abdominal GI/Abdominal exam: Present normal bowel sounds and soft; Absent organomegaly and tenderness Extremities Exam Extremities exam: Present full ROM, normal capillary refill and normal inspection; Absent tenderness Neurological Exam Neurological exam: Present alert, CN II-XII intact and oriented X3; Absent motor sensory deficit Psychiatric Psychiatric exam: Present normal affect and normal mood; Absent anxious and depressed Skin Skin exam: Present dry and intact OBJ DATA Labs CBC & Chem 7: 02/17/21 05:14 02/17/21 05:13 Labs: Abnormal Lab Results 02/17/21 02/17/21 02/16/21 05:14 05:13 05:13 WBC 14.4 H RDW Plt Count 463 H Neut % (Auto) 85.1 H Lymph % (Auto) 8.4 L Lymph # (Auto) 1.20 L Seg Neutrophils % Lymphocytes % Absolute Neutrophils 12.24 H RBC Morphology Anisocytosis Fibrinogen D-Dimer Sodium Chloride Carbon Dioxide BUN 34 H 29 H Creatinine 1.2 H 1.3 H Glucose 146 H 148 H Calcium 8.3 L Ferritin AST 41 H ALT 40 H Lactate Dehydrogenase C-Reactive Protein Albumin 3.1 L 3.0 L Albumin/Globulin Ratio 0.9 L Procalcitonin 02/16/21 02/15/21 02/15/21 05:13 05:38 05:38 WBC 13.3 H 12.4 H RDW 14.6 H 14.9 H Plt Count Neut % (Auto) 87.1 H 91.0 H Lymph % (Auto) 7.7 L 5.8 L Lymph # (Auto) 1.02 L 0.72 L Seg Neutrophils % Lymphocytes % Absolute Neutrophils 11.56 H 11.32 H RBC Morphology Anisocytosis Fibrinogen D-Dimer Sodium Chloride Carbon Dioxide BUN 25 H Creatinine 1.5 H Glucose 139 H Calcium 8.1 L Ferritin AST 56 H ALT 47 H Lactate Dehydrogenase C-Reactive Protein Albumin 3.0 L Albumin/Globulin Ratio 0.9 L Procalcitonin 02/14/21 02/14/21 02/14/21 16:55 16:55 16:55 WBC RDW Plt Count Neut % (Auto) Lymph % (Auto) Lymph # (Auto) Seg Neutrophils % Lymphocytes % Absolute Neutrophils RBC Morphology Anisocytosis Fibrinogen 758 H D-Dimer 0.88 H Sodium 131 L Chloride Carbon Dioxide 20 L BUN 24 H Creatinine 1.5 H Glucose 130 H Calcium 8.2 L Ferritin 1491.0 H AST 56 H ALT 47 H Lactate Dehydrogenase 478 H C-Reactive Protein 14.80 H Albumin Albumin/Globulin Ratio Procalcitonin 0.13 H 02/14/21 02/14/21 12:55 12:55 WBC RDW 14.6 H Plt Count Neut % (Auto) Lymph % (Auto) Lymph # (Auto) Seg Neutrophils % 84 H Lymphocytes % 7 L Absolute Neutrophils RBC Morphology Abnormal A Anisocytosis Few A Fibrinogen D-Dimer Sodium 132 L Chloride 95 L Carbon Dioxide BUN Creatinine 1.4 H Glucose Calcium 8.4 L Ferritin AST 62 H ALT 49 H Lactate Dehydrogenase C-Reactive Protein Albumin Albumin/Globulin Ratio Procalcitonin Meds: Medications Acetaminophen (Acetaminophen 325 Mg Tablet) 650 mg PO Q6HP PRN; Protocol PRN Reason: Per Pain Protocol/Fever > 101 Last Admin: 02/17/21 04:10 Dose: 650 mg Documented by: Albuterol/Ipratropium (Ipratropium/Albuterol 3 Ml Ampul.Neb) 3 ml NEB Q4HP PRN PRN Reason: Shortness Of Breath Atorvastatin Calcium (Atorvastatin 40 Mg Tablet) 80 mg PO HS [facility] Last Admin: 02/16/21 20:59 Dose: 80 mg Documented by: Cetirizine HCl (Cetirizine 10 Mg Tablet) 10 mg PO BID [facility] Last Admin: 02/16/21 20:58 Dose: 10 mg Documented by: Dexamethasone (Dexamethasone 10 Mg/Ml Vial) 6 mg IV DAILY [facility] Last Admin: 02/17/21 08:09 Dose: 6 mg Documented by: Dextrose (Dextrose 50% 50 Ml Vial) 0 ml IV UD PRN PRN Reason: Hypoglycemia Diagnostic Test (Pha) (Accu-Chek 1 Each Strip) 1 each FS ACHS [facility] Last Admin: 02/17/21 08:28 Dose: 1 each Documented by: Docusate Sodium (Docusate Sodium 100 Mg Capsule) 100 mg PO BID [facility] Last Admin: 02/17/21 08:06 Dose: Not Given Documented by: Enoxaparin Sodium (Enoxaparin 40 Mg/0.4 Ml Syringe) 40 mg SQ BID [facility] Last Admin: 02/17/21 08:09 Dose: 40 mg Documented by: Furosemide (Furosemide 20 Mg Tablet) 20 mg PO BIDD [facility] Last Admin: 02/17/21 08:06 Dose: 20 mg Documented by: Glucose (Dextrose 31 Gm Oral.Susp) 15 gm PO PRN PRN PRN Reason: Hypoglycemia Guaifenesin (Guaifenesin/Dextromethorphan Oral Steph) 10 ml PO Q4HP PRN PRN Reason: Cough Last Admin: 02/17/21 04:10 Dose: 10 ml Documented by: Hydrocortisone (Hydrocortisone Crm 2.5% Tube 30gm) 1 dose TOPICAL BID PRN PRN Reason: itching REMDESIVIR 100 mg/ Sodium (Chloride) 250 mls @ 500 mls/hr IV Q24H [facility] Stop: 02/18/21 15:29 Last Infusion: 08/30/21 03:17 Dose: Infused Documented by: Insulin Human Lispro (Insulin Lispro 1 Unit/0.01 Ml Unit) 0 unit SQ [facility]; Protocol Last Admin: 02/17/21 08:28 Dose: Not Given Documented by: Lactulose (Lactulose 20 Gm/30 Ml Oral.Steph) 10 gm PO DAILYP PRN PRN Reason: Constipation Levothyroxine Sodium (Levothyroxine 88 Mcg Tablet) 88 mcg PO QAMAC [facility] Last Admin: 02/17/21 08:06 Dose: 88 mcg Documented by: Ondansetron HCl (Ondansetron 4 Mg/2 Ml Vial) 4 mg IV Q4HP PRN; Protocol PRN Reason: Nausea And Vomiting Last Admin: 02/15/21 07:31 Dose: 4 mg Documented by: Ropinirole HCl (Ropinirole 0.25 Mg Tablet) 0.5 mg PO HS [facility] Last Admin: 02/16/21 20:58 Dose: 0.5 mg Documented by: Senna (Sennosides 1 Tablet) 2 tab PO HSP PRN PRN Reason: Constipation Sodium Chloride (0.9 % Sodium Chloride 10 Ml Syringe) 10 ml IV Q8 [facility] Last Admin: 02/17/21 08:06 Dose: 10 ml Documented by: Trazodone HCl (Trazodone Hcl 50 Mg Tablet) 50 - 100 mg PO HSP PRN PRN Reason: insomnia Last Admin: 02/16/21 20:59 Dose: 100 mg Documented by: A/P Assessment and plan (1) Pneumonia due to COVID-19 virus: Status: Acute (2) Respiratory failure, acute: Status: Acute (3) Asthma: Status: Chronic Qualifiers: Asthma severity: moderate Asthma persistence: persistent Asthma complication type: uncomplicated Qualified Code(s): J45.40 - Moderate persistent asthma, uncomplicated; J45.40 - Moderate persistent asthma, uncomplicated; J45.40 - Moderate persistent asthma, uncomplicated (4) Hypothyroidism: Status: Chronic Qualifiers: Hypothyroidism type: unspecified Qualified Code(s): E03.9 - Hypothyroidism, unspecified (5) Hyperlipidemia: Status: Chronic Comment: stable on rosvastatin 40mg daily Qualifiers: Hyperlipidemia type: mixed hyperlipidemia Qualified Code(s): E78.2 - Mixed hyperlipidemia (6) Hypertension, essential: Status: Chronic Comment: stable on olmesartan 5mg daily (7) T2DM (type 2 diabetes mellitus): Status: Acute (8) Stage 1 acute kidney injury: Status: Acute Narrative A/P Narrative: Assessment and Plans: 1. CoVID pneumonia: Inpatient PCU Isolation: airborne and contact Lactic acid Inflammatory markers Blood culture, no growth to date Daily ABG Daily cbc w/ auto diff Supplemental oxygen titrate to keep spo2>=92%, currently on high flow oxygen Tylenol PRN fever Robitussin DM PRN cough DuoNeb NEB q4hr PRN wheezing Remdesivir Dexamethasone Lovenox Lasix 2. Asthma: DuoNeb NEB q4hr PRN wheezing Supplemental oxygen titrate to keep spo2>=92% 3. T2DM: HgA1c 6.0 Hold oral hypoglycemics Low dose correctional scale insulin Accu Chek AC HS Hypoglycemia protocol Diabetic diet 4. Hypothyroidism: Continue oral thyroid replacement therapy 5. Essential HTN: Hold oral antihypertensives given borderline blood pressure 6. Mixed dyslipidemia: Continue statin therapy 7. Stage 1 acute kidney injury: Avoid nephrotoxic agents Saline lock with Lasix CMP in AM to trend kidney functions GI ppx: not currently indicated DVT ppx: Lovenox Code status: Full Prognosis: guarded Disposition: inpatient PCU Time Spent With Patient Time: Total time spent is greater than 50% in coordination of care (as documented) at patient's floor/unit and/or counseling patient: QUALITY VTE Deep Vein Thrombosis/Pulmonary Embolism Present on Admission: No
--- NOTE | 2021-02-17 09:39 | XRay Report ---
HISTORY: Follow-up COVID pneumonia FINDINGS: There are moderately severe diffuse alveolar infiltrates throughout both lungs. There has been mild improvement bilaterally since 02/14/21. No pleural effusion is present. The heart size is mildly enlarged but magnified. The mediastinum at the level of the azygos arch appears prominent. This could be due to adenopathy or enlarged central vessel. IMPRESSION: Improving pneumonia Interpreted and Authenticated by: Nathan Yang 02/17/21
[2021-02-17] MEDS: REMDESIVIR 100 MG in 0.9 % SODIUM CHLORIDE 250 ML IV SCH (15:01)
[2021-02-17] MEDS: rOPINIRole 0.25 MG TABLET PO SCH (21:28)
[2021-02-17] MEDS: traZODone HCL 50 MG TABLET PO PRN (21:28)
[2021-02-17] MEDS: ATORVASTATIN 40 MG TABLET PO SCH (21:29)
[2021-02-18] MEDS: 0.9 % SODIUM CHLORIDE 10 ML SYRINGE IV SCH ×3 (05:52→21:41)
--- NOTE | 2021-02-18 07:38 | Internal Med Progress Note ---
SUBJECTIVE Subjective Patient information: Note initiated : 02/18/21 at 7:37 am Service Date, if different from initiated Date: [] Patient: Estrella Sue a 65 y/o F admitted on 02/14/21 for COVID. Chief Complaint: [CoVID] Interval history: History of present illness: Ms. Sue is a 65 year old F history of type 2 diabetes mellitus, essential HTN, mixed dyslipidemia, hypothyroidism, asthma, presenting with 10-day history of shortness of breath with productive cough. Patient is not being vaccinated against Covid pneumonia. She was being diagnosed with Covid pneumonia 2 weeks ago because her had Covid pneumonia. Her symptoms of shortness of breath and productive cough started about 10 days ago. She is not sure about the color of her sputum. She denies respiratory wheezings. She denies subjective fever or chills. She is complaining of general body weakness. She denies generalized muscle aches. She presented to [facility] emergency room 2 days ago and she was being discharged home with Z-Humberto and was given a shot of steroid. Today when she presented to urgent care center she was found to have oxygen desaturations to 60s on room air. Labs significant for lack of leukocytosis with WBC 10.9. Serum creatinine level 1.4 baseline 1.0. Chest x-ray performed results pending. 02/15: Afebrile overnight. Been on high flow oxygen between 50-60L/min with FiO2 80% overnight. Improving degree of shortness of breath. c/o nonproductive cough without sputum production. Denies wheezing. Denies chest pain. Denies fever, chills, or sweating. 02/16: Afebrile overnight. Been on high flow oxygen between 50L/min with FiO2 70% overnight. Improving degree of shortness of breath. c/o nonproductive cough without sputum production. Denies wheezing. Denies chest pain. Denies fever, chills, or sweating. 02/16: Afebrile overnight. Been on high flow oxygen between 50L/min with FiO2 80% overnight. Improving degree of shortness of breath. c/o nonproductive cough without sputum production. Denies wheezing. Denies chest pain. Denies fever, chills, or sweating. 02/16: Afebrile overnight. Been on high flow oxygen between 50L/min with FiO2 80% overnight. Improving degree of shortness of breath. c/o nonproductive cough wi thout sputum production. Denies wheezing. Denies chest pain. Denies fever, chills, or sweating. Constitutional Vitals: Vital Signs Temp Pulse Resp BP Pulse Ox 36.8 C 52 L 19 134/75 99 02/18/21 04:01 02/18/21 06:01 02/18/21 06:01 02/18/21 06:01 02/18/21 06:01 Period Temp Pulse Resp BP Sys/Gupta Pulse Ox Last 24 Hr 36.3 C-36.8 C 50-81 13-25 105-150/68-99 92-100 Intake and Output 02/17/21 02/18/21 02/18/21 21:59 05:59 13:59 Intake Total 250 Output Total 1240 650 Balance -990 -650 Weight 92.442 kg Intake & Output: Intake & Output 02/17/21 02/18/21 02/18/21 21:59 05:59 13:59 Intake Total 250 Output Total 1240 650 Balance -990 -650 Weight 92.442 kg Intake: IV 250 Veklury 100 mg In Sodium 250 Chloride 0.9% 250 ml @ 500 mls/ hr IV Q24H [facility] Rx#:[id number] Output: Void Amount 1240 650 Other: Meal Lunch Percent of Meal Consumed 75% Urine Appearance Clear Clear Urine Color Bright Yellow Bright Yellow General appearance: cooperative and no acute distress Head Head exam: Present atraumatic and normocephalic Eye Eye exam: Present EOMI and PERRL ENT ENT exam: Present mucous membranes moist, normal exam and normal external ear exam Additional comments: High flow oxygen in place Neck Neck exam: Present normal inspection; Absent lymphadenopathy, tenderness and thyromegaly Respiratory Respiratory exam: Present rhonchi; Absent accessory muscle use, respiratory distress and wheezes Cardiovascular Cardiovascular exam: Present normal rate and rhythm; Absent JVD GI/Abdominal GI/Abdominal exam: Present normal bowel sounds and soft; Absent organomegaly and tenderness Extremities Exam Extremities exam: Present full ROM, normal capillary refill and normal inspection; Absent tenderness Neurological Exam Neurological exam: Present alert, CN II-XII intact and oriented X3; Absent motor sensory deficit Psychiatric Psychiatric exam: Present normal affect and normal mood; Absent anxious and depressed Skin Skin exam: Present dry and intact OBJ DATA Labs CBC & Chem 7: 02/17/21 05:14 02/17/21 05:13 Labs: Abnormal Lab Results 02/17/21 02/17/21 02/16/21 05:14 05:13 05:13 WBC 14.4 H RDW Plt Count 463 H Neut % (Auto) 85.1 H Lymph % (Auto) 8.4 L Lymph # (Auto) 1.20 L Absolute Neutrophils 12.24 H BUN 34 H 29 H Creatinine 1.2 H 1.3 H Glucose 146 H 148 H Calcium 8.3 L AST 41 H ALT 40 H Albumin 3.1 L 3.0 L Albumin/Globulin Ratio 0.9 L 02/16/21 05:13 WBC 13.3 H RDW 14.6 H Plt Count Neut % (Auto) 87.1 H Lymph % (Auto) 7.7 L Lymph # (Auto) 1.02 L Absolute Neutrophils 11.56 H BUN Creatinine Glucose Calcium AST ALT Albumin Albumin/Globulin Ratio Meds: Medications Acetaminophen (Acetaminophen 325 Mg Tablet) 650 mg PO Q6HP PRN; Protocol PRN Reason: Per Pain Protocol/Fever > 101 Last Admin: 02/17/21 21:29 Dose: 650 mg Documented by: Albuterol/Ipratropium (Ipratropium/Albuterol 3 Ml Ampul.Neb) 3 ml NEB Q4HP PRN PRN Reason: Shortness Of Breath Atorvastatin Calcium (Atorvastatin 40 Mg Tablet) 80 mg PO [facility] Last Admin: 02/17/21 21:29 Dose: 80 mg Documented by: Cetirizine HCl (Cetirizine 10 Mg Tablet) 10 mg PO BID [facility] Last Admin: 02/17/21 21:28 Dose: 10 mg Documented by: Dexamethasone (Dexamethasone 10 Mg/Ml Vial) 6 mg IV DAILY [facility] Last Admin: 02/17/21 08:09 Dose: 6 mg Documented by: Dextrose (Dextrose 50% 50 Ml Vial) 0 ml IV UD PRN PRN Reason: Hypoglycemia Diagnostic Test (Pha) (Accu-Chek 1 Each Strip) 1 each FS ACHS [facility] Last Admin: 02/17/21 21:45 Dose: 1 each Documented by: Docusate Sodium (Docusate Sodium 100 Mg Capsule) 100 mg PO BID [facility] Last Admin: 02/17/21 22:06 Dose: Not Given Documented by: Enoxaparin Sodium (Enoxaparin 40 Mg/0.4 Ml Syringe) 40 mg SQ BID [facility] Last Admin: 02/17/21 21:29 Dose: 40 mg Documented by: Furosemide (Furosemide 20 Mg Tablet) 20 mg PO BIDD [facility] Last Admin: 02/17/21 15:01 Dose: 20 mg Documented by: Glucose (Dextrose 31 Gm Oral.Susp) 15 gm PO PRN PRN PRN Reason: Hypoglycemia Guaifenesin (Guaifenesin/Dextromethorphan Oral Steph) 10 ml PO Q4HP PRN PRN Reason: Cough Last Admin: 02/17/21 21:30 Dose: 10 ml Documented by: Hydrocortisone (Hydrocortisone Crm 2.5% Tube 30gm) 1 dose TOPICAL BID PRN PRN Reason: itching REMDESIVIR 100 mg/ Sodium (Chloride) 250 mls @ 500 mls/hr IV Q24H [facility] Stop: 02/18/21 15:29 Last Infusion: 02/17/21 17:43 Dose: Infused Documented by: Insulin Human Lispro (Insulin Lispro 1 Unit/0.01 Ml Unit) 0 unit SQ ACHS [facility]; Protocol Last Admin: 02/17/21 21:45 Dose: 2 unit Documented by: Lactulose (Lactulose 20 Gm/30 Ml Oral.Steph) 10 gm PO DAILYP PRN PRN Reason: Constipation Levothyroxine Sodium (Levothyroxine 88 Mcg Tablet) 88 mcg PO QAMAC [facility] Last Admin: 02/17/21 08:06 Dose: 88 mcg Documented by: Ondansetron HCl (Ondansetron 4 Mg/2 Ml Vial) 4 mg IV Q4HP PRN; Protocol PRN Reason: Nausea And Vomiting Last Admin: 02/15/21 07:31 Dose: 4 mg Documented by: Ropinirole HCl (Ropinirole 0.25 Mg Tablet) 0.5 mg PO HS [facility] Last Admin: 02/17/21 21:28 Dose: 0.5 mg Documented by: Senna (Sennosides 1 Tablet) 2 tab PO HSP PRN PRN Reason: Constipation Sodium Chloride (0.9 % Sodium Chloride 10 Ml Syringe) 10 ml IV Q8 [facility] Last Admin: 02/18/21 05:52 Dose: 10 ml Documented by: Trazodone HCl (Trazodone Hcl 50 Mg Tablet) 50 - 100 mg PO HSP PRN PRN Reason: insomnia Last Admin: 02/17/21 21:28 Dose: 100 mg Documented by: A/P Assessment and plan (1) Pneumonia due to COVID-19 virus: Status: Acute (2) Respiratory failure, acute: Status: Acute (3) Asthma: Status: Chronic Qualifiers: Asthma severity: moderate Asthma persistence: persistent Asthma complication type: uncomplicated Qualified Code(s): J45.40 - Moderate persistent asthma, uncomplicated; J45.40 - Moderate persistent asthma, uncomplicated; J45.40 - Moderate persistent asthma, uncomplicated (4) Hypothyroidism: Status: Chronic Qualifiers: Hypothyroidism type: unspecified Qualified Code(s): E03.9 - Hypothyroidism, unspecified (5) Hyperlipidemia: Status: Chronic Comment: stable on rosvastatin 40mg daily Qualifiers: Hyperlipidemia type: mixed hyperlipidemia Qualified Code(s): E78.2 - Mixed hyperlipidemia (6) Hypertension, essential: Status: Chronic Comment: stable on olmesartan 5mg daily (7) T2DM (type 2 diabetes mellitus): Status: Acute (8) Stage 1 acute kidney injury: Status: Acute Narrative A/P Narrative: Assessment and Plans: 1. CoVID pneumonia: Inpatient PCU Isolation: airborne and contact Lactic acid Inflammatory markers Blood culture, no growth to date Daily ABG Daily cbc w/ auto diff Supplemental oxygen titrate to keep spo2>=92%, currently on high flow oxygen Tylenol PRN fever Robitussin DM PRN cough DuoNeb NEB q4hr PRN wheezing Remdesivir Dexamethasone Lovenox Lasix 2. Asthma: DuoNeb NEB q4hr PRN wheezing Supplemental oxygen titrate to keep spo2>=92% 3. T2DM: HgA1c 6.0 Hold oral hypoglycemics Low dose correctional scale insulin Accu Chek AC HS Hypoglycemia protocol Diabetic diet 4. Hypothyroidism: Continue oral thyroid replacement therapy 5. Essential HTN: Hold oral antihypertensives given borderline blood pressure 6. Mixed dyslipidemia: Continue statin therapy 7. Stage 1 acute kidney injury: Avoid nephrotoxic agents Saline lock with Lasix CMP in AM to trend kidney functions GI ppx: not currently indicated DVT ppx: Lovenox Code status: Full Prognosis: guarded Disposition: inpatient PCU Time Spent With Patient Time: Total time spent is greater than 50% in coordination of care (as documented) at patient's floor/unit and/or counseling patient: QUALITY VTE Deep Vein Thrombosis/Pulmonary Embolism Present on Admission: No
[2021-02-18] MEDS: ENOXAPARIN 40 MG/0.4 ML SYRINGE SQ SCH ×2 (07:54→21:18)
[2021-02-18] MEDS: LEVOTHYROXINE 88 MCG TABLET PO SCH (07:55)
[2021-02-18] MEDS: CETIRIZINE 10 MG TABLET PO SCH ×2 (07:55→21:19)
[2021-02-18] MEDS: DOCUSATE SODIUM 100 MG CAPSULE PO SCH ×2 (07:55→21:41)
[2021-02-18] MEDS: DEXAMETHASONE 10 MG/ML VIAL IV SCH (07:55)
[2021-02-18] MEDS: FUROSEMIDE 20 MG TABLET PO SCH ×2 (07:55→15:25)
[2021-02-18] MEDS: INSULIN LISPRO 1 UNIT/0.01 ML UNIT SQ SCH ×4 (08:51→21:41)
[2021-02-18 09:08] LABS: Basophils # (Auto) 0.05 K/mcL (0.00-0.30); Basophils % (Auto) 0.4 % (0.0-2.0); Eosinophils # (Auto) 0.02 K/mcL (0.00-0.70); Eosinophils % (Auto) 0.2 % (0.0-7.0); Hematocrit 37.2 % (34.1-44.9); Hemoglobin 11.8 g/dL (11.2-15.7); Lymphocytes # (Auto) 1.52 K/mcL (1.50-4.80); Lymphocytes % (Auto) 12.7 % (15.5-49.0); Mean Cell Volume 95.9 fL (80.0-100.0); Mean Corpuscular HGB Conc 31.7 g/dL (31.0-36.0); Monocytes # (Auto) 0.77 K/mcL (0.10-0.90); Monocytes % (Auto) 6.4 % (1.0-12.0); Neutrophils % (Auto) 80.3 % (38.0-78.0); Platelet Count 480 K/mcL (140-440); RBC 3.88 M/mcL (3.59-5.38); Red Cell Distribution Width 14.1 % (11.5-14.5)
[2021-02-18 09:21] LABS: ALT/SGPT 31 U/L (<40); AST/SGOT 22 U/L (<32); Albumin 3.2 gm/dL (3.2-5.2); Albumin/Globulin Ratio 1.1 (1.0-2.3); Alkaline Phosphatase 55 U/L (39-117); Bilirubin,Total 0.4 mg/dL (0.1-1.0); Blood Urea Nitrogen 38 mg/dL (8-23); Calcium 9.1 mg/dL (8.6-10.4); Carbon Dioxide 27 mmol/L (22-30); Chloride 96 mmol/L (96-108); Globulin 2.8 gm/dL (2.2-3.7); Glomerular Filtration Rate 52; Glucose 117 mg/dL (70-105)
[2021-02-18] MEDS: SIMETHICONE 80 MG TAB.CHEW CHEWED PRN (12:44)
--- NOTE | 2021-02-18 13:04 | Internal Med Progress Note ---
SUBJECTIVE Subjective Patient information: Note initiated : 02/18/21 at 12:57 pm Service Date, if different from initiated Date: [] Patient: Estrella Sue a 65 y/o F admitted on 02/14/21 for COVID. Chief Complaint: [] Interval history: Interval history: History of present illness: Ms. Sue is a 65 year old F history of type 2 diabetes mellitus, essential HTN, mixed dyslipidemia, hypothyroidism, asthma, presenting with 10-day history of shortness of breath with productive cough. Patient is not being vaccinated against Covid pneumonia. She was being diagnosed with Covid pneumonia 2 weeks ago because her had Covid pneumonia. Her symptoms of shortness of breath and productive cough started about 10 days ago. She is not sure about the color of her sputum. She denies respiratory wheezings. She denies subjective fever or chills. She is complaining of general body weakness. She denies generalized muscle aches. She presented to [facility] emergency room 2 days ago and she was being discharged home with Z-Humberto and was given a shot of steroid. Today when she presented to urgent care center she was found to have oxygen desaturations to 60s on room air. Labs significant for lack of leukocytosis with WBC 10.9. Seru m creatinine level 1.4 baseline 1.0. Chest x-ray performed results pending. 02/15: Afebrile overnight. Been on high flow oxygen between 50-60L/min with FiO2 80% overnight. Improving degree of shortness of breath. c/o nonproductive cough without sputum production. Denies wheezing. Denies chest pain. Denies fever, chills, or sweating. 02/16: Afebrile overnight. Been on high flow oxygen between 50L/min with FiO2 70% overnight. Improving degree of shortness of breath. c/o nonproductive cough without sputum production. Denies wheezing. Denies chest pain. Denies fever, chills, or sweating. 02/17: Afebrile overnight. Been on high flow oxygen between 50L/min with FiO2 80% overnight. Improving degree of shortness of breath. c/o nonproductive cough without sputum production. Denies wheezing. Denies chest pain. Denies fever, chills, or sweating. 02/18: Afebrile overnight. Been on high flow oxygen between 50L/min with FiO2 80% overnight. Improving degree of shortness of breath. c/o nonproductive cough without sputum production. Denies wheezing. Denies chest pain. Denies fever, chills, or sweating. 02/19 Constitutional Vitals: Vital Signs Temp Pulse Resp BP Pulse Ox 97.2 F 61 17 138/75 98 02/18/21 12:01 02/18/21 12:01 02/18/21 12:01 02/18/21 12:01 02/18/21 12:01 Period Temp Pulse Resp BP Sys/Gupta Pulse Ox Last 24 Hr 97.2 F-98.3 F 50-81 13-22 105-150/68-99 92-100 Intake and Output 02/17/21 02/18/21 02/18/21 21:59 05:59 13:59 Intake Total 250 Output Total 1240 650 275 Balance -990 -650 -275 Weight 92.442 kg Intake & Output: Intake & Output 02/17/21 02/18/21 02/18/21 21:59 05:59 13:59 Intake Total 250 Output Total 1240 650 275 Balance -990 -650 -275 Weight 92.442 kg Intake: IV 250 Veklury 100 mg In Sodium 250 Chloride 0.9% 250 ml @ 500 mls/ hr IV Q24H [facility] Rx#:[id number] Output: Urine Catheter Amount 100 Void Amount 1240 650 175 Other: Meal Lunch Percent of Meal Consumed 75% Urine Appearance Clear Clear Clear Urine Color Bright Yellow Bright Yellow Dark Yellow Exam: General: Alert, Awake, No acute Distress, obese Eyes/N/T: EOMI, Head/Neck: neck supple, CV: RRR, No murmurs, Pulm: b/l, no wheezing/rhonchi/rales Abd: soft, nontender, +BS x4 Ext: no clubbing/cyanosis/edema Neuro: Alert, no focal deficits, moves all extremities, Skin: warm/dry OBJ DATA Labs CBC & Chem 7: 02/18/21 05:14 02/18/21 05:14 Labs: Abnormal Lab Results 02/18/21 02/18/21 02/17/21 05:14 05:14 05:14 WBC 12.0 H 14.4 H RDW Plt Count 480 H 463 H Neut % (Auto) 80.3 H 85.1 H Lymph % (Auto) 12.7 L 8.4 L Lymph # (Auto) 1.20 L Absolute Neutrophils 9.60 H 12.24 H BUN 38 H Creatinine Glucose 117 H Calcium AST ALT Albumin Albumin/Globulin Ratio 02/17/21 02/16/21 02/16/21 05:13 05:13 05:13 WBC 13.3 H RDW 14.6 H Plt Count Neut % (Auto) 87.1 H Lymph % (Auto) 7.7 L Lymph # (Auto) 1.02 L Absolute Neutrophils 11.56 H BUN 34 H 29 H Creatinine 1.2 H 1.3 H Glucose 146 H 148 H Calcium 8.3 L AST 41 H ALT 40 H Albumin 3.1 L 3.0 L Albumin/Globulin Ratio 0.9 L Meds: Medications Acetaminophen (Acetaminophen 325 Mg Tablet) 650 mg PO Q6HP PRN; Protocol PRN Reason: Per Pain Protocol/Fever > 101 Last Admin: 02/17/21 21:29 Dose: 650 mg Documented by: Albuterol/Ipratropium (Ipratropium/Albuterol 3 Ml Ampul.Neb) 3 ml NEB Q4HP PRN PRN Reason: Shortness Of Breath Atorvastatin Calcium (Atorvastatin 40 Mg Tablet) 80 mg PO HS [facility] Last Admin: 02/17/21 21:29 Dose: 80 mg Documented by: Cetirizine HCl (Cetirizine 10 Mg Tablet) 10 mg PO BID [facility] Last Admin: 02/18/21 07:55 Dose: 10 mg Documented by: Dexamethasone (Dexamethasone 10 Mg/Ml Vial) 6 mg IV DAILY [facility] Last Admin: 02/18/21 07:55 Dose: 6 mg Documented by: Dextrose (Dextrose 50% 50 Ml Vial) 0 ml IV UD PRN PRN Reason: Hypoglycemia Diagnostic Test (Pha) (Accu-Chek 1 Each Strip) 1 each FS ACHS [facility] Last Admin: 02/18/21 12:37 Dose: 1 each Documented by: Docusate Sodium (Docusate Sodium 100 Mg Capsule) 100 mg PO BID [facility] Last Admin: 02/18/21 07:55 Dose: 100 mg Documented by: Enoxaparin Sodium (Enoxaparin 40 Mg/0.4 Ml Syringe) 40 mg SQ BID [facility] Last Admin: 02/18/21 07:54 Dose: 40 mg Documented by: Furosemide (Furosemide 20 Mg Tablet) 20 mg PO BIDD [facility] Last Admin: 02/18/21 07:55 Dose: 20 mg Documented by: Glucose (Dextrose 31 Gm Oral.Susp) 15 gm PO PRN PRN PRN Reason: Hypoglycemia Guaifenesin (Guaifenesin/Dextromethorphan Oral Steph) 10 ml PO Q4HP PRN PRN Reason: Cough Last Admin: 02/17/21 21:30 Dose: 10 ml Documented by: Hydrocortisone (Hydrocortisone Crm 2.5% Tube 30gm) 1 dose TOPICAL BID PRN PRN Reason: itching REMDESIVIR 100 mg/ Sodium (Chloride) 250 mls @ 500 mls/hr IV Q24H [facility] Stop: 02/18/21 15:29 Last Infusion: 02/17/21 17:43 Dose: Infused Documented by: Insulin Human Lispro (Insulin Lispro 1 Unit/0.01 Ml Unit) 0 unit SQ ACHS [facility]; Protocol Last Admin: 02/18/21 12:38 Dose: 3 unit Documented by: Lactulose (Lactulose 20 Gm/30 Ml Oral.Steph) 10 gm PO DAILYP PRN PRN Reason: Constipation Levothyroxine Sodium (Levothyroxine 88 Mcg Tablet) 88 mcg PO QAMAC [facility] Last Admin: 02/18/21 07:55 Dose: 88 mcg Documented by: Ondansetron HCl (Ondansetron 4 Mg/2 Ml Vial) 4 mg IV Q4HP PRN; Protocol PRN Reason: Nausea And Vomiting Last Admin: 02/15/21 07:31 Dose: 4 mg Documented by: Ropinirole HCl (Ropinirole 0.25 Mg Tablet) 0.5 mg PO HS [facility] Last Admin: 02/17/21 21:28 Dose: 0.5 mg Documented by: Senna (Sennosides 1 Tablet) 2 tab PO HSP PRN PRN Reason: Constipation Simethicone (Simethicone 80 Mg Tab.Chew) 80 mg CHEWED QIDP PRN PRN Reason: Dyspepsia Last Admin: 02/18/21 12:44 Dose: 80 mg Documented by: Sodium Chloride (0.9 % Sodium Chloride 10 Ml Syringe) 10 ml IV Q8 [facility] Last Admin: 02/18/21 12:38 Dose: 10 ml Documented by: Trazodone HCl (Trazodone Hcl 50 Mg Tablet) 50 - 100 mg PO HSP PRN PRN Reason: insomnia Last Admin: 02/17/21 21:28 Dose: 100 mg Documented by: A/P Narrative A/P Narrative: A: *CoVID pneumonia w/ARDS: -Blood culture, no growth to date *Acute hypoxic respiratory failure: -on vapotherm @ 80% *Asthma: *LAVONNE on CKD III: improved *T2DM: A1c 6.0 *Hypothyroidism: *HTN: *Obesity: P: -Remdesivir/Dexamethasone -Inflammatory markers -oxygen titrate to keep spo2>=92%, currently on high flow oxygen -DuoNeb NEB q4hr PRN wheezing -Lasix -SSI -Hold oral antihypertensives given borderline blood pressure -ppx: Lovenox Code status: Full Prognosis: guarded Time Spent With Patient Time: Total time spent is greater than 50% in coordination of care (as documented) at patient's floor/unit and/or counseling patient: QUALITY VTE Deep Vein Thrombosis/Pulmonary Embolism Present on Admission: No
[2021-02-18] MEDS: REMDESIVIR 100 MG in 0.9 % SODIUM CHLORIDE 250 ML IV SCH (15:25)
[2021-02-18] MEDS: ATORVASTATIN 40 MG TABLET PO SCH (21:19)
[2021-02-18] MEDS: traZODone HCL 50 MG TABLET PO PRN (21:19)
[2021-02-18] MEDS: rOPINIRole 0.25 MG TABLET PO SCH (21:19)
[2021-02-18] MEDS: ACETAMINOPHEN 325 MG TABLET PO PRN (21:19)
[2021-02-18] MEDS: guaiFENesin/DEXTROMETHORPHAN ORAL SOL PO PRN (21:21)
[2021-02-19] MEDS: LEVOTHYROXINE 88 MCG TABLET PO SCH (07:13)
[2021-02-19] MEDS: 0.9 % SODIUM CHLORIDE 10 ML SYRINGE IV SCH ×3 (07:21→21:09)
[2021-02-19] MEDS: INSULIN LISPRO 1 UNIT/0.01 ML UNIT SQ SCH ×4 (07:22→23:11)
--- NOTE | 2021-02-19 07:22 | Internal Med Progress Note ---
SUBJECTIVE Subjective Patient information: Note initiated : 02/19/21 at 7:17 am Service Date, if different from initiated Date: [] Patient: Estrella Sue a 65 y/o F admitted on 02/14/21 for COVID. Chief Complaint: [] Interval history: Interval history: History of present illness: Ms. Sue is a 65 year old F history of type 2 diabetes mellitus, essential HTN, mixed dyslipidemia, hypothyroidism, asthma, presenting with 10-day history of shortness of breath with productive cough. Patient is not being vaccinated against Covid pneumonia. She was being diagnosed with Covid pneumonia 2 weeks ago because her had Covid pneumonia. Her symptoms of shortness of breath and productive cough started about 10 days ago. She is not sure about the color of her sputum. She denies respiratory wheezings. She denies subjective fever or chills. She is complaining of general body weakness. She denies generalized muscle aches. She presented to [facility] emergency room 2 days ago and she was being discharged home with Z-Humberto and was given a shot of steroid. Today when she presented to urgent care center she was found to have oxygen desaturations to 60s on room air. Labs significant for lack of leukocytosis with WBC 10.9. Serum creatinine level 1.4 baseline 1.0. Chest x-ray performed results pending. 02/15: Afebrile overnight. Been on high flow oxygen between 50-60L/min with FiO2 80% overnight. Improving degree of shortness of breath. c/o nonproductive cough without sputum production. Denies wheezing. Denies chest pain. Denies fever, chills, or sweating. 02/16: Afebrile overnight. Been on high flow oxygen between 50L/min with FiO2 70% overnight. Improving degree of shortness of breath. c/o nonproductive cough without sputum production. Denies wheezing. Denies chest pain. Denies fever, chills, or sweating. 02/17: Afebrile overnight. Been on high flow oxygen between 50L/min with FiO2 80% overnight. Improving degree of shortness of breath. c/o nonproductive cough without sputum production. Denies wheezing. Denies chest pain. Denies fever, chills, or sweating. 02/18: Afebrile overnight. Been on high flow oxygen between 50L/min with FiO2 80% overnight. Improving degree of shortness of breath. c/o nonproductive cough without sputum production. Denies wheezing. Denies chest pain. Denies fever, chills, or sweating. 02/19 Patient doing well. Denies shortness of breath at rest feels shortness of breath is improving. Has occasional dry cough. Vapotherm FiO2 turned down as well as the flow. Review of Systems: denies headache/fever/chills/nausea/vomiting/chest or abdominal pain/diarrhea. Otherwise see above. Constitutional Vitals: Vital Signs Temp Pulse Resp BP Pulse Ox 97.1 F 57 L 18 122/75 95 02/19/21 04:01 02/19/21 06:01 02/19/21 06:01 02/19/21 06:01 02/19/21 06:01 Period Temp Pulse Resp BP Sys/Gupta Pulse Ox Last 24 Hr 97.1 F-98.2 F 50-87 14-19 113-140/64-88 91-100 Intake and Output 02/18/21 02/19/21 02/19/21 21:59 05:59 13:59 Intake Total 990 Output Total 1125 650 Balance -135 -650 Weight 92.578 kg Intake & Output: Intake & Output 02/18/21 02/19/21 02/19/21 21:59 05:59 13:59 Intake Total 990 Output Total 1125 650 Balance -135 -650 Weight 92.578 kg Intake: IV 250 Veklury 100 mg In Sodium 250 Chloride 0.9% 250 ml @ 500 mls/ hr IV Q24H [facility] Rx#:[id number] Oral 740 Output: Void Amount 1125 650 Other: Meal Dinner Percent of Meal Consumed 100% Feeding Ability Independent Urine Appearance Clear Clear Urine Color Bright Yellow Bright Yellow Exam: General: Alert, Awake, No acute Distress, obese Eyes/N/T: EOMI, Head/Neck: neck supple, CV: RRR, No murmurs, Pulm: minimal rhonchi b/l, no wheezing Abd: soft, nontender, +BS x4 Ext: no clubbing/cyanosis/edema Neuro: Alert, no focal deficits, moves all extremities, Skin: warm/dry OBJ DATA Labs CBC & Chem 7: 02/19/21 07:35 02/19/21 07:34 Labs: Abnormal Lab Results 02/18/21 02/18/21 02/17/21 05:14 05:14 05:14 WBC 12.0 H 14.4 H Plt Count 480 H 463 H Neut % (Auto) 80.3 H 85.1 H Lymph % (Auto) 12.7 L 8.4 L Lymph # (Auto) 1.20 L Absolute Neutrophils 9.60 H 12.24 H BUN 38 H Creatinine Glucose 117 H Calcium AST ALT Albumin Albumin/Globulin Ratio 02/17/21 02/16/21 02/16/21 05:13 05:13 05:13 WBC Plt Count Neut % (Auto) 87.1 H Lymph % (Auto) Lymph # (Auto) Absolute Neutrophils BUN 34 H 29 H Creatinine 1.2 H 1.3 H Glucose 146 H 148 H Calcium 8.3 L AST 41 H ALT 40 H Albumin 3.1 L 3.0 L Albumin/Globulin Ratio 0.9 L Meds: Medications Acetaminophen (Acetaminophen 325 Mg Tablet) 650 mg PO Q6HP PRN; Protocol PRN Reason: Per Pain Protocol/Fever > 101 Last Admin: 02/18/21 21:19 Dose: 650 mg Documented by: Albuterol/Ipratropium (Ipratropium/Albuterol 3 Ml Ampul.Neb) 3 ml NEB Q4HP PRN PRN Reason: Shortness Of Breath Atorvastatin Calcium (Atorvastatin 40 Mg Tablet) 80 mg PO HS [facility] Last Admin: 02/18/21 21:19 Dose: 80 mg Documented by: Cetirizine HCl (Cetirizine 10 Mg Tablet) 10 mg PO BID [facility] Last Admin: 02/18/21 21:19 Dose: 10 mg Documented by: Dexamethasone (Dexamethasone 10 Mg/Ml Vial) 6 mg IV DAILY [facility] Last Admin: 02/18/21 07:55 Dose: 6 mg Documented by: Dextrose (Dextrose 50% 50 Ml Vial) 0 ml IV UD PRN PRN Reason: Hypoglycemia Diagnostic Test (Pha) (Accu-Chek 1 Each Strip) 1 each FS ACHS [facility] Last Admin: 02/18/21 20:43 Dose: 1 each Documented by: Docusate Sodium (Docusate Sodium 100 Mg Capsule) 100 mg PO BID [facility] Last Admin: 02/18/21 21:41 Dose: Not Given Documented by: Enoxaparin Sodium (Enoxaparin 40 Mg/0.4 Ml Syringe) 40 mg SQ BID [facility] Last Admin: 02/18/21 21:18 Dose: 40 mg Documented by: Furosemide (Furosemide 20 Mg Tablet) 20 mg PO BIDD [facility] Last Admin: 02/18/21 15:25 Dose: 20 mg Documented by: Glucose (Dextrose 31 Gm Oral.Susp) 15 gm PO PRN PRN PRN Reason: Hypoglycemia Guaifenesin (Guaifenesin/Dextromethorphan Oral Steph) 10 ml PO Q4HP PRN PRN Reason: Cough Last Admin: 02/18/21 21:21 Dose: 10 ml Documented by: Hydrocortisone (Hydrocortisone Crm 2.5% Tube 30gm) 1 dose TOPICAL BID PRN PRN Reason: itching Insulin Human Lispro (Insulin Lispro 1 Unit/0.01 Ml Unit) 0 unit SQ [facility]; Protocol Last Admin: 02/18/21 21:41 Dose: 6 unit Documented by: Lactulose (Lactulose 20 Gm/30 Ml Oral.Steph) 10 gm PO DAILYP PRN PRN Reason: Constipation Levothyroxine Sodium (Levothyroxine 88 Mcg Tablet) 88 mcg PO QAMAC [facility] Last Admin: 02/18/21 07:55 Dose: 88 mcg Documented by: Ondansetron HCl (Ondansetron 4 Mg/2 Ml Vial) 4 mg IV Q4HP PRN; Protocol PRN Reason: Nausea And Vomiting Last Admin: 02/15/21 07:31 Dose: 4 mg Documented by: Ropinirole HCl (Ropinirole 0.25 Mg Tablet) 0.5 mg PO HS [facility] Last Admin: 02/18/21 21:19 Dose: 0.5 mg Documented by: Senna (Sennosides 1 Tablet) 2 tab PO HSP PRN PRN Reason: Constipation Simethicone (Simethicone 80 Mg Tab.Chew) 80 mg CHEWED QIDP PRN PRN Reason: Dyspepsia Last Admin: 02/18/21 12:44 Dose: 80 mg Documented by: Sodium Chloride (0.9 % Sodium Chloride 10 Ml Syringe) 10 ml IV Q8 [facility] Last Admin: 02/18/21 21:41 Dose: 10 ml Documented by: Trazodone HCl (Trazodone Hcl 50 Mg Tablet) 50 - 100 mg PO HSP PRN PRN Reason: insomnia Last Admin: 02/18/21 21:19 Dose: 100 mg Documented by: A/P Narrative A/P Narrative: A: *CoVID pneumonia w/ARDS: -Blood culture, no growth to date -CRP improved *Acute hypoxic respiratory failure: -on vapotherm L/m @ 55% *Asthma: *LAVONNE on CKD III: improved *T2DM: A1c 6.0 *Hypothyroidism: *HTN: on ARB *Transaminitis: 2/2 above, resolved *Obesity: P: -Remdesivir(finished)/Dexamethasone -Inflammatory markers -oxygen titrate to keep spo2 92-96%, currently on high flow oxygen -DuoNeb NEB q4hr PRN wheezing -d/c Lasix -SSI -Hold oral antihypertensives given borderline blood pressure, -ppx: Lovenox Code status: Full Prognosis: guarded Time Spent With Patient Time: Total time spent is greater than 50% in coordination of care (as documented) at patient's floor/unit and/or counseling patient: QUALITY VTE Deep Vein Thrombosis/Pulmonary Embolism Present on Admission: No
[2021-02-19 08:14] LABS: Basophils # (Auto) 0.08 K/mcL (0.00-0.30); Basophils % (Auto) 0.6 % (0.0-2.0); Eosinophils # (Auto) 0.07 K/mcL (0.00-0.70); Eosinophils % (Auto) 0.6 % (0.0-7.0); Hematocrit 37.5 % (34.1-44.9); Lymphocytes # (Auto) 1.85 K/mcL (1.50-4.80); Lymphocytes % (Auto) 14.8 % (15.5-49.0); Mean Cell Volume 94.9 fL (80.0-100.0); Mean Platelet Volume 9.7 fL (7.4-10.4); Monocytes # (Auto) 0.87 K/mcL (0.10-0.90); Monocytes % (Auto) 6.9 % (1.0-12.0); Neutrophils % (Auto) 77.1 % (38.0-78.0); Platelet Count 466 K/mcL (140-440); RBC 3.95 M/mcL (3.59-5.38); Red Cell Distribution Width 13.9 % (11.5-14.5)
[2021-02-19 08:33] LABS: Blood Urea Nitrogen 33 mg/dL (8-23); Calcium 9.2 mg/dL (8.6-10.4); Carbon Dioxide 27 mmol/L (22-30); Chloride 97 mmol/L (96-108); Glomerular Filtration Rate 76; Glucose 117 mg/dL (70-105)
[2021-02-19] MEDS: DEXAMETHASONE 10 MG/ML VIAL IV SCH (09:07)
[2021-02-19] MEDS: DOCUSATE SODIUM 100 MG CAPSULE PO SCH ×2 (09:07→21:09)
[2021-02-19] MEDS: CETIRIZINE 10 MG TABLET PO SCH ×2 (09:07→21:09)
[2021-02-19] MEDS: ENOXAPARIN 40 MG/0.4 ML SYRINGE SQ SCH ×2 (09:07→21:09)
[2021-02-19 09:25] LABS: WBC 12.5 K/mcL (4.5-11.0)
[2021-02-19 10:20] LABS: Band Neutrophils % 2 % (0-10); Eosinophils % (Manual) 1 % (0-7); Lymphocytes % 11 % (15-49); Monocytes % (Manual) 11 % (1-12); Myelocytes % 1 %; Platelet Estimate INCREASED (Normal); RBC Morphology NORMAL (Normal); Reactive Lymphocytes 3 % (0-2); Segmented Neutrophils % 71 % (38-78)
[2021-02-19] MEDS: SIMETHICONE 80 MG TAB.CHEW CHEWED PRN (15:46)
[2021-02-19] MEDS: rOPINIRole 0.25 MG TABLET PO SCH (21:09)
[2021-02-19] MEDS: traZODone HCL 50 MG TABLET PO PRN (21:09)
[2021-02-19] MEDS: ATORVASTATIN 40 MG TABLET PO SCH (21:09)
[2021-02-20] MEDS: 0.9 % SODIUM CHLORIDE 10 ML SYRINGE IV SCH ×3 (05:40→21:09)
[2021-02-20] MEDS: LEVOTHYROXINE 88 MCG TABLET PO SCH (07:16)
[2021-02-20] MEDS ORDERED: hydrALAZINE 20 MG/ML VIAL IV PRN (07:21)
--- NOTE | 2021-02-20 07:22 | Internal Med Progress Note ---
SUBJECTIVE Subjective Patient information: Note initiated : 02/20/21 at 7:18 am Service Date, if different from initiated Date: [] Patient: Estrella Sue a 65 y/o F admitted on 02/14/21 for COVID. Chief Complaint: [] Interval history: Interval history: History of present illness: Ms. Sue is a 65 year old F history of type 2 diabetes mellitus, essential HTN, mixed dyslipidemia, hypothyroidism, asthma, presenting with 10-day history of shortness of breath with productive cough. Patient is not being vaccinated against Covid pneumonia. She was being diagnosed with Covid pneumonia 2 weeks ago because her had Covid pneumonia. Her symptoms of shortness of breath and productive cough started about 10 days ago. She is not sure about the color of her sputum. She denies respiratory wheezings. She denies subjective fever or chills. She is complaining of general body weakness. She denies generalized muscle aches. She presented to [facility] emergency room 2 days ago and she was being discharged home with Z-Humberto and was given a shot of steroid. Today when she presented to urgent care center she was found to have oxygen desaturations to 60s on room air. Labs significant for lack of leukocytosis with WBC 10.9. Serum creatinine level 1.4 baseline 1.0. Chest x-ray performed results pending. 02/15: Afebrile overnight. Been on high flow oxygen between 50-60L/min with FiO2 80% overnight. Improving degree of shortness of breath. c/o nonproductive cough without sputum production. Denies wheezing. Denies chest pain. Denies fever, chills, or sweating. 02/16: Afebrile overnight. Been on high flow oxygen between 50L/min with FiO2 70% overnight. Improving degree of shortness of breath. c/o nonproductive cough without sputum production. Denies wheezing. Denies chest pain. Denies fever, chills, or sweating. 02/17: Afebrile overnight. Been on high flow oxygen between 50L/min with FiO2 80% overnight. Improving degree of shortness of breath. c/o nonproductive cough without sputum production. Denies wheezing. Denies chest pain. Denies fever, chills, or sweating. 02/18: Afebrile overnight. Been on high flow oxygen between 50L/min with FiO2 80% overnight. Improving degree of shortness of breath. c/o nonproductive cough without sputum production. Denies wheezing. Denies chest pain. Denies fever, chills, or sweating. 02/19 Patient doing well. Denies shortness of breath at rest feels shortness of breath is improving. Has occasional dry cough. Vapotherm FiO2 turned down as well as the flow. 02/20 Patient continues to improve. She is now on nasal cannula high flow instead of Vapotherm. She has minimal cough and denies shortness of breath at rest feels some shortness of breath with exertion. Review of Systems: denies headache/fever/chills/nausea/vomiting/chest or abdominal pain/diarrhea. Otherwise see above. Constitutional Vitals: Vital Signs Temp Pulse Resp BP Pulse Ox 98.5 F 50 L 16 157/78 94 02/20/21 00:01 02/20/21 05:01 02/20/21 05:01 02/20/21 04:02 02/20/21 05:01 Period Temp Pulse Resp BP Sys/Gupta Pulse Ox Last 24 Hr 97.2 F-98.5 F 50-82 11-23 120-157/62-83 87-97 Intake and Output 02/19/21 02/20/21 02/20/21 21:59 05:59 13:59 Intake Total 120 260 Output Total 500 500 Balance -380 -240 Weight 92.125 kg Intake & Output: Intake & Output 02/19/21 02/20/21 02/20/21 21:59 05:59 13:59 Intake Total 120 260 Output Total 500 500 Balance -380 -240 Weight 92.125 kg Intake: Oral 120 260 Output: Urine Catheter Amount 250 250 Void Amount 250 250 Other: Urine Appearance Clear Clear Urine Color Bright Yellow Bright Yellow Exam: General: Alert, Awake, No acute Distress, obese Eyes/N/T: EOMI, Head/Neck: neck supple, CV: RRR, No murmurs, Pulm: minimal rhonchi b/l, no wheezing Abd: soft, nontender, +BS x4 Ext: no clubbing/cyanosis/edema Neuro: Alert, no focal deficits, moves all extremities, Skin: warm/dry OBJ DATA Labs CBC & Chem 7: 02/19/21 07:35 02/19/21 07:34 Labs: Abnormal Lab Results 02/19/21 02/19/21 02/19/21 07:35 07:34 07:34 WBC 12.5 H Plt Count 466 H Neut % (Auto) Lymph % (Auto) 14.8 L Lymph # (Auto) Lymphocytes % 11 L Absolute Neutrophils 9.65 H Reactive Lymphocytes 3 H Platelet Estimate Increased A BUN 33 H Creatinine Glucose 117 H C-Reactive Protein 1.90 H Albumin 02/18/21 02/18/21 02/17/21 05:14 05:14 05:14 WBC 12.0 H 14.4 H Plt Count 480 H 463 H Neut % (Auto) 80.3 H 85.1 H Lymph % (Auto) 12.7 L 8.4 L Lymph # (Auto) 1.20 L Lymphocytes % Absolute Neutrophils 9.60 H 12.24 H Reactive Lymphocytes Platelet Estimate BUN 38 H Creatinine Glucose 117 H C-Reactive Protein Albumin 02/17/21 05:13 WBC Plt Count Neut % (Auto) Lymph % (Auto) Lymph # (Auto) Lymphocytes % Absolute Neutrophils Reactive Lymphocytes Platelet Estimate BUN 34 H Creatinine 1.2 H Glucose 146 H C-Reactive Protein Albumin 3.1 L Meds: Medications Acetaminophen (Acetaminophen 325 Mg Tablet) 650 mg PO Q6HP PRN; Protocol PRN Reason: Per Pain Protocol/Fever > 101 Last Admin: 02/18/21 21:19 Dose: 650 mg Documented by: Albuterol/Ipratropium (Ipratropium/Albuterol 3 Ml Ampul.Neb) 3 ml NEB Q4HP PRN PRN Reason: Shortness Of Breath Atorvastatin Calcium (Atorvastatin 40 Mg Tablet) [address] [facility] Last Admin: 02/19/21 21:09 Dose: 80 mg Documented by: Cetirizine HCl (Cetirizine 10 Mg Tablet) 10 mg PO BID [facility] Last Admin: 02/19/21 21:09 Dose: 10 mg Documented by: Dexamethasone (Dexamethasone 10 Mg/Ml Vial) 6 mg IV DAILY [facility] Last Admin: 02/19/21 09:07 Dose: 6 mg Documented by: Dextrose (Dextrose 50% 50 Ml Vial) 0 ml IV UD PRN PRN Reason: Hypoglycemia Diagnostic Test (Pha) (Accu-Chek 1 Each Strip) 1 each FS ACHS [facility] Last Admin: 02/19/21 21:09 Dose: 1 each Documented by: Docusate Sodium (Docusate Sodium 100 Mg Capsule) 100 mg PO BID [facility] Last Admin: 02/19/21 21:09 Dose: 100 mg Documented by: Enoxaparin Sodium (Enoxaparin 40 Mg/0.4 Ml Syringe) 40 mg SQ BID [facility] Last Admin: 02/19/21 21:09 Dose: 40 mg Documented by: Glucose (Dextrose 31 Gm Oral.Susp) 15 gm PO PRN PRN PRN Reason: Hypoglycemia Guaifenesin (Guaifenesin/Dextromethorphan Oral Steph) 10 ml PO Q4HP PRN PRN Reason: Cough Last Admin: 02/18/21 21:21 Dose: 10 ml Documented by: Hydrocortisone (Hydrocortisone Crm 2.5% Tube 30gm) 1 dose TOPICAL BID PRN PRN Reason: itching Insulin Human Lispro (Insulin Lispro 1 Unit/0.01 Ml Unit) 0 unit SQ [facility]; Protocol Last Admin: 02/19/21 23:11 Dose: Not Given Documented by: Lactulose (Lactulose 20 Gm/30 Ml Oral.Steph) 10 gm PO DAILYP PRN PRN Reason: Constipation Levothyroxine Sodium (Levothyroxine 88 Mcg Tablet) 88 mcg PO QAMAC [facility] Last Admin: 02/20/21 07:16 Dose: 88 mcg Documented by: Ondansetron HCl (Ondansetron 4 Mg/2 Ml Vial) 4 mg IV Q4HP PRN; Protocol PRN Reason: Nausea And Vomiting Last Admin: 02/15/21 07:31 Dose: 4 mg Documented by: Ropinirole HCl (Ropinirole 0.25 Mg Tablet) 0.[address] [facility] Last Admin: 02/19/21 21:09 Dose: 0.5 mg Documented by: Senna (Sennosides 1 Tablet) 2 tab PO HSP PRN PRN Reason: Constipation Simethicone (Simethicone 80 Mg Tab.Chew) 80 mg CHEWED QIDP PRN PRN Reason: Dyspepsia Last Admin: 02/19/21 15:46 Dose: 80 mg Documented by: Sodium Chloride (0.9 % Sodium Chloride 10 Ml Syringe) 10 ml IV Q8 [facility] Last Admin: 02/20/21 05:40 Dose: 10 ml Documented by: Trazodone HCl (Trazodone Hcl 50 Mg Tablet) 50 - 100 mg PO HSP PRN PRN Reason: insomnia Last Admin: 02/19/21 21:09 Dose: 50 mg Documented by: A/P Narrative A/P Narrative: A: *CoVID pneumonia w/ARDS: -Blood culture, no growth to date -CRP improved *Acute hypoxic respiratory failure: -now NC HF instead of vapotherm *Asthma: *LAVONNE on CKD III: improved *T2DM: A1c 6.0 *Hypothyroidism: *HTN: on ARB *Transaminitis: 2/2 above, resolved *Obesity: P: -Remdesivir(finished)/Dexamethasone -prone, oob to chair -Inflammatory markers -oxygen titrate to keep spo2 92-96%, currently on high flow oxygen -DuoNeb NEB q4hr PRN wheezing -d/c'd Lasix -SSI -restart oral antihypertensives now that blood pressure as elevated -ppx: Lovenox Code status: Full Prognosis: guarded Time Spent With Patient Time: Total time spent is greater than 50% in coordination of care (as documented) at patient's floor/unit and/or counseling patient: QUALITY VTE Deep Vein Thrombosis/Pulmonary Embolism Present on Admission: No
[2021-02-20] MEDS: INSULIN LISPRO 1 UNIT/0.01 ML UNIT SQ SCH ×4 (07:46→21:07)
[2021-02-20] MEDS: CETIRIZINE 10 MG TABLET PO SCH ×2 (09:16→21:09)
[2021-02-20] MEDS: OLMESARTAN MEDOXOMIL 20 MG TABLET PO SCH (09:16)
[2021-02-20] MEDS: ENOXAPARIN 40 MG/0.4 ML SYRINGE SQ SCH ×2 (09:17→21:08)
[2021-02-20] MEDS: DOCUSATE SODIUM 100 MG CAPSULE PO SCH ×2 (09:17→21:09)
[2021-02-20] MEDS: DEXAMETHASONE 10 MG/ML VIAL IV SCH (09:17)
[2021-02-20] MEDS: ATORVASTATIN 40 MG TABLET PO SCH (21:08)
[2021-02-20] MEDS: rOPINIRole 0.25 MG TABLET PO SCH (21:08)
[2021-02-20] MEDS: traZODone HCL 50 MG TABLET PO PRN (21:08)
[2021-02-21] MEDS ORDERED: POTASSIUM CHLORIDE 20 MEQ TABLET PO PRN ×4 (03:13→10:13)
[2021-02-21] MEDS ORDERED: MAGNESIUM SULFATE 8.12 MEQ/2 ML VIAL IV PRN ×2 (03:16→10:13)
[2021-02-21] MEDS ORDERED: POTASSIUM CHLORIDE 40 MEQ in DEXTROSE 5% IN WATER 500 ML IV PRN ×2 (03:21→10:13)
[2021-02-21] MEDS: 0.9 % SODIUM CHLORIDE 10 ML SYRINGE IV SCH ×3 (04:43→20:29)
[2021-02-21] MEDS: LEVOTHYROXINE 88 MCG TABLET PO SCH (07:04)
[2021-02-21 07:39] LABS: Hematocrit 37.7 % (34.1-44.9); Hemoglobin 11.7 g/dL (11.2-15.7); Mean Cell Volume 97.2 fL (80.0-100.0); Mean Platelet Volume 9.8 fL (7.4-10.4); Platelet Count 447 K/mcL (140-440); RBC 3.88 M/mcL (3.59-5.38); WBC 15.9 K/mcL (4.5-11.0)
--- NOTE | 2021-02-21 07:52 | Internal Med Progress Note ---
SUBJECTIVE Subjective Patient information: Note initiated : 02/21/21 at 7:49 am Service Date, if different from initiated Date: [] Patient: Estrella Sue a 65 y/o F admitted on 02/14/21 for COVID. Chief Complaint: [] Interval history: Interval history: History of present illness: Ms. Sue is a 65 year old F history of type 2 diabetes mellitus, essential HTN, mixed dyslipidemia, hypothyroidism, asthma, presenting with 10-day history of shortness of breath with productive cough. Patient is not being vaccinated against Covid pneumonia. She was being diagnosed with Covid pneumonia 2 weeks ago because her had Covid pneumonia. Her symptoms of shortness of breath and productive cough started about 10 days ago. She is not sure about the color of her sputum. She denies respiratory wheezings. She denies subjective fever or chills. She is complaining of general body weakness. She denies generalized muscle aches. She presented to [facility] emergency room 2 days ago and she was being discharged home with Z-Humberto and was given a shot of steroid. Today when she presented to urgent care center she was found to have oxygen desaturations to 60s on room air. Labs significant for lack of leukocytosis with WBC 10.9. Serum creatinine level 1.4 baseline 1.0. Chest x-ray performed results pending. 02/15: Afebrile overnight. Been on high flow oxygen between 50-60L/min with FiO2 80% overnight. Improving degree of shortness of breath. c/o nonproductive cough without sputum production. Denies wheezing. Denies chest pain. Denies fever, chills, or sweating. 02/16: Afebrile overnight. Been on high flow oxygen between 50L/min with FiO2 70% overnight. Improving degree of shortness of breath. c/o nonproductive cough without sputum production. Denies wheezing. Denies chest pain. Denies fever, chills, or sweating. 02/17: Afebrile overnight. Been on high flow oxygen between 50L/min with FiO2 80% overnight. Improving degree of shortness of breath. c/o nonproductive cough without sputum production. Denies wheezing. Denies chest pain. Denies fever, chills, or sweating. 02/18: Afebrile overnight. Been on high flow oxygen between 50L/min with FiO2 80% overnight. Improving degree of shortness of breath. c/o nonproductive cough without sputum production. Denies wheezing. Denies chest pain. Denies fever, chills, or sweating. 02/19 Patient doing well. Denies shortness of breath at rest feels shortness of breath is improving. Has occasional dry cough. Vapotherm FiO2 turned down as well as the flow. 02/20 Patient continues to improve. She is now on nasal cannula high flow instead of Vapotherm. She has minimal cough and denies shortness of breath at rest feels some shortness of breath with exertion. 02/21 Patient continues to improve. She is on 2 L nasal cannula at rest and 5 L with exertion. Minimal cough. Shortness of breath significantly improved. Review of Systems: denies headache/fever/chills/nausea/vomiting/chest or abdominal pain/diarrhea. Otherwise see above. Constitutional Vitals: Vital Signs Temp Pulse Resp BP Pulse Ox 97.4 F 61 22 128/58 95 02/21/21 07:17 02/21/21 07:17 02/21/21 07:17 02/21/21 07:17 02/21/21 07:17 Period Temp Pulse Resp BP Sys/Gupta Pulse Ox Last 24 Hr 97.4 F-98.3 F 46-68 12-22 112-145/58-83 88-98 Intake and Output 02/20/21 02/21/21 02/21/21 21:59 05:59 13:59 Intake Total 300 Output Total 700 875 125 Balance -700 -575 -125 Weight 93.485 kg Intake & Output: Intake & Output 02/20/21 02/21/21 02/21/21 21:59 05:59 13:59 Intake Total 300 Output Total 700 875 125 Balance -700 -575 -125 Weight 93.485 kg Intake: Oral 300 Output: Void Amount 700 875 125 Other: Urine Appearance Clear Clear Clear Urine Color Bright Yellow Bright Yellow Bright Yellow Urine Odor Strong Strong # Bowel Movements 0 Exam: General: Alert, Awake, No acute Distress, obese Eyes/N/T: EOMI, Head/Neck: neck supple, CV: RRR, No murmurs, Pulm: clearing honchi/rales b/l, no wheezing Abd: soft, nontender, +BS x4 Ext: no clubbing/cyanosis/edema Neuro: Alert, no focal deficits, moves all extremities, Skin: warm/dry OBJ DATA Labs CBC & Chem 7: 02/21/21 05:50 02/21/21 05:50 Labs: Abnormal Lab Results 02/21/21 02/19/21 02/19/21 05:50 07:35 07:34 WBC 15.9 H 12.5 H Plt Count 447 H 466 H Neut % (Auto) Lymph % (Auto) 14.8 L Lymphocytes % 11 L Absolute Neutrophils 9.65 H Reactive Lymphocytes 3 H Platelet Estimate Increased A BUN Glucose C-Reactive Protein 02/19/21 02/18/21 02/18/21 07:34 05:14 05:14 WBC 12.0 H Plt Count 480 H Neut % (Auto) 80.3 H Lymph % (Auto) 12.7 L Lymphocytes % Absolute Neutrophils 9.60 H Reactive Lymphocytes Platelet Estimate BUN 33 H 38 H Glucose 117 H 117 H C-Reactive Protein 1.90 H Meds: Medications Acetaminophen (Acetaminophen 325 Mg Tablet) 650 mg PO Q6HP PRN; Protocol PRN Reason: Per Pain Protocol/Fever > 101 Last Admin: 02/18/21 21:19 Dose: 650 mg Documented by: Albuterol/Ipratropium (Ipratropium/Albuterol 3 Ml Ampul.Neb) 3 ml NEB Q4HP PRN PRN Reason: Shortness Of Breath Atorvastatin Calcium (Atorvastatin 40 Mg Tablet) [address] [facility] Last Admin: 02/20/21 21:08 Dose: 80 mg Documented by: Cetirizine HCl (Cetirizine 10 Mg Tablet) 10 mg PO BID [facility] Last Admin: 02/20/21 21:09 Dose: 10 mg Documented by: Dexamethasone (Dexamethasone 10 Mg/Ml Vial) 6 mg IV DAILY [facility] Last Admin: 02/20/21 09:17 Dose: 6 mg Documented by: Dextrose (Dextrose 50% 50 Ml Vial) 0 ml IV UD PRN PRN Reason: Hypoglycemia Diagnostic Test (Pha) (Accu-Chek 1 Each Strip) 1 each FS ACHS [facility] Last Admin: 02/20/21 21:07 Dose: 1 each Documented by: Docusate Sodium (Docusate Sodium 100 Mg Capsule) 100 mg PO BID [facility] Last Admin: 02/20/21 21:09 Dose: 100 mg Documented by: Enoxaparin Sodium (Enoxaparin 40 Mg/0.4 Ml Syringe) 40 mg SQ BID [facility] Last Admin: 02/20/21 21:08 Dose: 40 mg Documented by: Glucose (Dextrose 31 Gm Oral.Susp) 15 gm PO PRN PRN PRN Reason: Hypoglycemia Guaifenesin (Guaifenesin/Dextromethorphan Oral Steph) 10 ml PO Q4HP PRN PRN Reason: Cough Last Admin: 02/18/21 21:21 Dose: 10 ml Documented by: Hydralazine HCl (Hydralazine 20 Mg/Ml Vial) 0 mg IV Q2HP PRN PRN Reason: Hypertension Hydrocortisone (Hydrocortisone Crm 2.5% Tube 30gm) 1 dose TOPICAL BID PRN PRN Reason: itching Potassium Chloride 40 meq/ (Dextrose) 520 mls @ 130 mls/hr IV DAILYP PRN PRN Reason: Potassium < 3 Insulin Human Lispro (Insulin Lispro 1 Unit/0.01 Ml Unit) 0 unit SQ ACHS [facility]; Protocol Last Admin: 02/20/21 21:07 Dose: 4 unit Documented by: Lactulose (Lactulose 20 Gm/30 Ml Oral.Steph) 10 gm PO DAILYP PRN PRN Reason: Constipation Levothyroxine Sodium (Levothyroxine 88 Mcg Tablet) 88 mcg PO QAMAC [facility] Last Admin: 02/21/21 07:04 Dose: 88 mcg Documented by: Magnesium Sulfate (Magnesium Sulfate 8.12 Meq/2 Ml Vial) 16.24 meq IV DAILYP PRN PRN Reason: Magnesium </= 1.6 Olmesartan (Olmesartan Medoxomil 20 Mg Tablet) 5 mg PO DAILY [facility] Last Admin: 02/20/21 09:16 Dose: 5 mg Documented by: Ondansetron HCl (Ondansetron 4 Mg/2 Ml Vial) 4 mg IV Q4HP PRN; Protocol PRN Reason: Nausea And Vomiting Last Admin: 02/15/21 07:31 Dose: 4 mg Documented by: Potassium Chloride (Potassium Chloride 20 Meq Tablet) 40 meq PO DAILYP PRN PRN Reason: Potassium is 3-3.5 Potassium Chloride (Potassium Chloride 20 Meq Tablet) 40 meq PO DAILYP PRN PRN Reason: Potassium < 3 Ropinirole HCl (Ropinirole 0.25 Mg Tablet) 0.5 mg PO HS [facility] Last Admin: 02/20/21 21:08 Dose: 0.5 mg Documented by: Senna (Sennosides 1 Tablet) 2 tab PO HSP PRN PRN Reason: Constipation Last Admin: 02/20/21 21:07 Dose: 2 tab Documented by: Simethicone (Simethicone 80 Mg Tab.Chew) 80 mg CHEWED QIDP PRN PRN Reason: Dyspepsia Last Admin: 02/19/21 15:46 Dose: 80 mg Documented by: Sodium Chloride (0.9 % Sodium Chloride 10 Ml Syringe) 10 ml IV Q8 [facility] Last Admin: 02/21/21 04:43 Dose: 10 ml Documented by: Trazodone HCl (Trazodone Hcl 50 Mg Tablet) 50 - 100 mg PO HSP PRN PRN Reason: insomnia Last Admin: 02/20/21 21:08 Dose: 50 mg Documented by: A/P Narrative A/P Narrative: A: *CoVID pneumonia w/ARDS: -Blood culture, no growth to date -CRP improved *Acute hypoxic respiratory failure: -down to 2L NC *Leukocytosis, persistent: afebrile, crp/pct low, no bandemia. ?reactive, ?steroids *Asthma: *LAVONNE on CKD III: improved *T2DM: A1c 6.0 *Hypothyroidism: *HTN: on ARB *Transaminitis: 2/2 above, resolved *Obesity: P: -Remdesivir(finished)/Dexamethasone(finished) -prone, oob to chair -oxygen titrate to keep spo2 92-96%, currently on high flow oxygen -DuoNeb NEB q4hr PRN wheezing -SSI -restarted ARB now that blood pressure as elevated -ppx: Lovenox Code status: Silk Screen Printer Spent With Patient Time: Total time spent is greater than 50% in coordination of care (as documented) at patient's floor/unit and/or counseling patient: QUALITY VTE Deep Vein Thrombosis/Pulmonary Embolism Present on Admission: No
[2021-02-21 07:57] LABS: Blood Urea Nitrogen 25 mg/dL (8-23); Calcium 9.4 mg/dL (8.6-10.4); Carbon Dioxide 25 mmol/L (22-30); Chloride 99 mmol/L (96-108); Glomerular Filtration Rate 66; Glucose 132 mg/dL (70-105)
[2021-02-21] MEDS: INSULIN LISPRO 1 UNIT/0.01 ML UNIT SQ SCH ×4 (08:23→20:30)
[2021-02-21] MEDS: DEXAMETHASONE 10 MG/ML VIAL IV SCH (08:30)
[2021-02-21] MEDS: OLMESARTAN MEDOXOMIL 20 MG TABLET PO SCH (08:30)
[2021-02-21] MEDS: ENOXAPARIN 40 MG/0.4 ML SYRINGE SQ SCH ×2 (08:30→20:25)
[2021-02-21] MEDS: CETIRIZINE 10 MG TABLET PO SCH ×2 (08:30→20:24)
[2021-02-21] MEDS: DOCUSATE SODIUM 100 MG CAPSULE PO SCH ×3 (08:30→20:32)
[2021-02-21 08:48] LABS: Band Neutrophils % 6 % (0-10); Lymphocytes % 13 % (15-49); Monocytes % (Manual) 2 % (1-12); Myelocytes % 2 %; Platelet Estimate NORMAL (Normal); RBC Morphology NORMAL (Normal); Segmented Neutrophils % 77 % (38-78)
[2021-02-21] MEDS ORDERED: ACETAMINOPHEN 325 MG TABLET PO PRN (10:13)
[2021-02-21] MEDS ORDERED: DEXTROSE 31 GM ORAL.SUSP PO PRN (10:13)
[2021-02-21] MEDS ORDERED: SENNOSIDES 1 TABLET PO PRN (10:13)
[2021-02-21] MEDS ORDERED: HYDROCORTISONE CRM 2.5% TUBE 30GM TOPICAL PRN (10:13)
[2021-02-21] MEDS ORDERED: IPRATROPIUM/ALBUTEROL 3 ML AMPUL.NEB NEB PRN (10:13)
[2021-02-21] MEDS ORDERED: guaiFENesin/DEXTROMETHORPHAN ORAL SOL PO PRN (10:13)
[2021-02-21] MEDS ORDERED: hydrALAZINE 20 MG/ML VIAL IV PRN (10:13)
[2021-02-21] MEDS ORDERED: traZODone HCL 50 MG TABLET PO PRN (10:13)
[2021-02-21] MEDS ORDERED: LACTULOSE 20 GM/30 ML ORAL.SOL PO PRN (10:13)
[2021-02-21] MEDS ORDERED: SIMETHICONE 80 MG TAB.CHEW CHEWED PRN (10:13)
[2021-02-21] MEDS ORDERED: DEXTROSE 50% 50 ML VIAL IV PRN (10:13)
[2021-02-21] MEDS ORDERED: ONDANSETRON 4 MG/2 ML VIAL IV PRN (10:13)
[2021-02-21] MEDS ORDERED: MAGNESIUM SULFATE 2 GM/50 ML BAG IV PRN (10:21)
[2021-02-21] MEDS ORDERED: POLYETHYLENE GLYCOL 3350 17 GM PACKET PO PRN (10:36)
--- NOTE | 2021-02-21 11:19 | Discharge Summary ---
Discharge Provider Provider Patient information: Note initiated : 02/21/21 at 11:17 am Service Date, if different from initiated Date: [] Patient: Estrella Sue 65 y/o F admitted on 02/14/21 for COVID. Chief Complaint: [] Date of admission: 02/14/21 15:56 Discharge date: 02/22/21 Primary care physician: Rosa M Terry PA-C Consults: 02/14/21 Consult to Physician [CONS] Stat Comment: Consulting Provider: Shlomo Henley Reason For Exam: Physician to Consult Discharge Meds Discharge Medications Home Medications levothyroxine 88 mcg capsule 88 mcg PO QDAY #90 cap 02/06/20 [Rx Confirmed 02/14/21 Last Taken 02/14/21 07:00] olmesartan 5 mg tablet 5 mg PO QDAY #90 tab 02/06/20 [Rx Confirmed 02/14/21 Last Taken 02/14/21 07:00] rosuvastatin 40 mg tablet 40 mg PO QDAY #90 tab 02/06/20 [Rx Confirmed 02/14/21 Last Taken 02/13/21 21:00] trazodone 50 mg tablet See Rx Instructions PO QDAY PRN #90 tab 10/04/20 [Rx Confirmed 02/14/21 Last Taken 02/13/21 21:00] cetirizine 10 mg PO BID 02/14/21 [History Confirmed 02/14/21 Last Taken 02/14/21 07:00] glipizide 2.5 mg PO QAM 02/14/21 [History Confirmed 02/14/21 Last Taken 02/14/21 07:00] oxygen-air delivery systems 02/15/21 [History Confirmed 02/15/21 Last Taken Unknown] montelukast 10 mg tablet 10 mg PO QHS #90 tab 02/19/21 [Rx Last Taken Unknown] amoxicillin-pot clavulanate [Augmentin] 1 tab PO Q12H #10 tab 02/22/21 [Rx Last Taken Unknown] COURSE Hospital Course Hospital course: Interval history: Interval history: History of present illness: Ms. Sue is a 65 year old F history of type 2 diabetes mellitus, essential HTN, mixed dyslipidemia, hypothyroidism, asthma, presenting with 10-day history of shortness of breath with productive cough. Patient is not being vaccinated against Covid pneumonia. She was being diagnosed with Covid pneumonia 2 weeks ago because her had Covid pneumonia. Her symptoms of shortness of breath and productive cough started about 10 days ago. She is not sure about the color of her sputum. She denies respiratory wheezings. She denies subjective fever or chills. She is complaining of general body weakness. She denies generalized muscle aches. She presented to [facility] emergency room 2 days ago and she was being discharged home with Z-Humberto and was given a shot of steroid. Today when she presented to urgent care center she was found to have oxygen desaturations to 60s on room air. Labs significant for lack of leukocytosis with WBC 10.9. Serum creatinine level 1.4 baseline 1.0. Chest x-ray performed results pending. 02/15: Afebrile overnight. Been on high flow oxygen between 50-60L/min with FiO2 80% overnight. Improving degree of shortness of breath. c/o nonproductive cough without sputum production. Denies wheezing. Denies chest pain. Denies fever, chills, or sweating. 02/16: Afebrile overnight. Been on high flow oxygen between 50L/min with FiO2 70% overnight. Improving degree of shortness of breath. c/o nonproductive cough without sputum production. Denies wheezing. Denies chest pain. Denies fever, chills, or sweating. 02/17: Afebrile overnight. Been on high flow oxygen between 50L/min with FiO2 80% overnight. Improving degree of shortness of breath. c/o nonproductive cough without sputum production. Denies wheezing. Denies chest pain. Denies fever, chills, or sweating. 02/18: Afebrile overnight. Been on high flow oxygen between 50L/min with FiO2 80% overnight. Improving degree of shortness of breath. c/o nonproductive cough without sputum production. Denies wheezing. Denies chest pain. Denies fever, chills, or sweating. 02/19 Patient doing well. Denies shortness of breath at rest feels shortness of breath is improving. Has occasional dry cough. Vapotherm FiO2 turned down as well as the flow. 02/20 Patient continues to improve. She is now on nasal cannula high flow instead of Vapotherm. She has minimal cough and denies shortness of breath at rest feels some shortness of breath with exertion. 02/21 Patient continues to improve. She is on 2 L nasal cannula at rest and 5 L with exertion. Minimal cough. Shortness of breath significantly improved. 02/22 Persistent leukocytosis. But patient feels well, is afebrile, No bandemia, Nontoxic appearing, feels ready to go home. My only concern would be if she is developing a secondary bacterial pna; however, she is feeling better unless this is an early manifestation. will obtain cxr and likely send with short course abx for suspected bacterial coinfection. We will follow up CBC outpatient as well. A/P Narrative: A: *CoVID pneumonia w/ARDS: -Blood culture, no growth to date -CRP improved *Acute hypoxic respiratory failure: -down to 2L NC *Leukocytosis, persistent: afebrile, crp/pct low, no bandemia. ?reactive, ?steroids *Asthma: *LAVONNE on CKD III: improved *T2DM: A1c 6.0 *Hypothyroidism: *HTN: on ARB *Transaminitis: 2/2 above, resolved *Obesity: *?developing secondary bacterial pna: Discharge diagnosis: Covid pneumonia with large acute hypoxic respiratory failure Secondary discharge diagnosis: Asthma acute on chronic kidney disease diabetes hypothyroidism hypertension transaminitis obesity Time Spent with Patient Time attestation: Total time spent providing and/or coordinating discharge services: Time spent: Greater than 30 minutes EXAM Constitutional Vitals: Temp Pulse Resp BP Pulse Ox 97.1 F 79 22 105/69 94 02/21/21 11:12 02/21/21 11:13 02/21/21 11:13 02/21/21 11:12 02/21/21 11:13 Discharge Data Data Completed and Pending Labs on day of discharge: Labs from last 24 hours 02/21/21 02/21/21 02/21/21 05:50 05:50 05:50 WBC RBC Hgb Hct MCV MCH MCHC RDW Plt Count MPV Seg Neutrophils % Band Neutrophils % Lymphocytes % Monocytes % (Manual) Myelocytes % Platelet Estimate RBC Morphology Sodium 135 Potassium 3.9 Chloride 99 Carbon Dioxide 25 Anion Gap 11.0 BUN 25 H Creatinine 0.9 GFR Calculation 66 Glucose 132 H Calcium 9.4 C-Reactive Protein 1.00 H Procalcitonin 0.07 02/21/21 05:50 WBC 15.9 H RBC 3.88 Hgb 11.7 Hct 37.7 MCV 97.2 MCH 30.2 MCHC 31.0 RDW 14.0 Plt Count 447 H MPV 9.8 Seg Neutrophils % 77 Band Neutrophils % 6 Lymphocytes % 13 L Monocytes % (Manual) 2 Myelocytes % 2 Platelet Estimate Normal RBC Morphology Normal Sodium Potassium Chloride Carbon Dioxide Anion Gap BUN Creatinine GFR Calculation Glucose Calcium C-Reactive Protein Procalcitonin Discharge Plan Patient/Caregiver Discharge Instructions Activity: increase activity as tolerated Diet: Consistent Carbohydrate Activity Restrictions/Additional Instructions: Home oxygen for Covid pneumonia Prescriptions: New amoxicillin-pot clavulanate [Augmentin] 875-125 mg tablet 1 tab PO Q12H Qty: 10 RF: 0 Continued trazodone 50 mg tablet See Rx Instructions PO QDAY PRN (Reason: insomnia) Qty: 90 RF: 2 montelukast 10 mg tablet 10 mg PO QHS Qty: 90 RF: 0 levothyroxine 88 mcg capsule 88 mcg PO QDAY Qty: 90 RF: 4 olmesartan 5 mg tablet 5 mg PO QDAY Qty: 90 RF: 4 rosuvastatin 40 mg tablet 40 mg PO QDAY Qty: 90 RF: 4 glipizide 5 mg tablet 2.5 mg PO QAM RF: 0 cetirizine 10 mg Tablet 10 mg PO BID RF: 0 (DME) oxygen-air delivery systems Device MISCELLANEOUS RF: 0 Other Ambulatory Orders: Complete Blood Count Man Dif (Routine) Timeframe: 3 Days Facility: [facility] - Location: Laboratory Ordered By: Trent Luque Follow Up Plan Follow up with: Rosa M Terry PA-C [Primary Care Provider] - Patient Disposition: Home, Self-Care Prognosis: Fair Overall status at discharge: patient is progressing back to baseline Discharge Orders: Discharge Order (Routine); Ordered 02/22/21 Ordered By: Trent Luque [facility] VTE Deep Vein Thrombosis/Pulmonary Embolism Present on Admission: No
[2021-02-21] MEDS ORDERED: rOPINIRole 0.25 MG TABLET PO SCH (21:00)
[2021-02-21] MEDS ORDERED: ATORVASTATIN 40 MG TABLET PO SCH (21:00)
[2021-02-22] MEDS: 0.9 % SODIUM CHLORIDE 10 ML SYRINGE IV SCH (04:19)
[2021-02-22] MEDS ORDERED: LEVOTHYROXINE 88 MCG TABLET PO SCH (07:30)
[2021-02-22 07:55] LABS: Basophils # (Auto) 0.05 K/mcL (0.00-0.30); Basophils % (Auto) 0.3 % (0.0-2.0); Eosinophils # (Auto) 0.02 K/mcL (0.00-0.70); Eosinophils % (Auto) 0.1 % (0.0-7.0); Hematocrit 37.9 % (34.1-44.9); Hemoglobin 11.7 g/dL (11.2-15.7); Lymphocytes # (Auto) 2.09 K/mcL (1.50-4.80); Mean Cell Volume 97.9 fL (80.0-100.0); Mean Corpuscular HGB Conc 30.9 g/dL (31.0-36.0); Mean Platelet Volume 9.8 fL (7.4-10.4); Monocytes # (Auto) 0.96 K/mcL (0.10-0.90); Neutrophils % (Auto) 80.6 % (38.0-78.0); Platelet Count 428 K/mcL (140-440); RBC 3.87 M/mcL (3.59-5.38); WBC 16.1 K/mcL (4.5-11.0)
[2021-02-22] MEDS ORDERED: AMOXICILLIN/POTASSIUM CLAV 875 MG TABLET PO SCH (08:00)
[2021-02-22] MEDS ORDERED: OLMESARTAN MEDOXOMIL 20 MG TABLET PO SCH (09:00)
[2021-02-22] MEDS: CETIRIZINE 10 MG TABLET PO SCH (09:18)
[2021-02-22] MEDS: DOCUSATE SODIUM 100 MG CAPSULE PO SCH (09:18)
[2021-02-22] MEDS: INSULIN LISPRO 1 UNIT/0.01 ML UNIT SQ SCH (09:19)
[2021-02-22] MEDS: ENOXAPARIN 40 MG/0.4 ML SYRINGE SQ SCH (09:19)
--- NOTE | 2021-02-22 12:27 | XRay Report ---
CLINICAL INFORMATION: leuckotysosis COMPARISON: 02/17/2021 FINDINGS: Borderline cardiomegaly is unchanged. Mediastinum and pulmonary vasculature are unremarkable. Bilateral infiltrates have improved considerably since the exam less than one week prior. There is minimal residual in the periphery of both lungs. No effusions. IMPRESSION: Marked improvement in bilateral infiltrates Interpreted and Authenticated by: Gavin Bernal 02/22/21
--- NOTE | 2021-02-24 17:54 | EKG ---
[facility] Test Date: 2021-02-14 Pat Name: Estrella Sue Department: ED Room: Gender: Female Applied Statistician: lr : 1955 Requested By: Kahlil Mroeau Order Number: [id number] Reading MD: Shashi Howard Measurements Intervals [place] Rate: 83 P: 36 UT: 156 QRS: -2 QRSD: 89 T: -7 QT: 381 QTc: 448 Interpretive Statements Sinus rhythm Nonspecific T abnrm, anterolateral leads Baseline wander in lead(s) V5,V6 Electronically Signed On 02-24-2021 17:53:33 PDT by Shashi Howard /store/M0/[id number]
== END 2021-02-22 11:28 | disposition home or self-care (01) | DRG 177 ==
LOC: ED 12:39 → ICU 15:56 → MEDSUR 02-21 14:47
PROVIDERS: ADMIT Internal Medicine; ATTEND Internal Medicine